=== PATIENT | female | born 1960 | race Caucasian/White ===

== ENCOUNTER → 2020-02-07 15:34 | Outpatient (CLI) | payer OTHER, SELFPAY ==
--- NOTE | ~2020-02-07 | MR_ITS ---
EXAMINATION: MR lumbar spine wo con EXAM DATE: 02/07/2020 16:19 INDICATION: Low back pain. TECHNIQUE: Multi-sequential, multiplanar MR images of the lumbar spine were obtained without contrast . Sagittal T1, T2, T2 fat saturation images. Axial T2 weighted images. There is no prior study for comparison. FINDINGS: There is a rudimentary S1-S2 disc. There is 3 mm anterolisthesis L5 on S1. The conus medull marian terminates at the L1-2 level and has normal signal intensity and morphology. Mild disc disease a t all lumbar levels. No spondylolysis suspected. No suspicious marrow signal abnormalities. Paraspina l soft tissue is unremarkable. The vertebral bodies are otherwise aligned. Level by level evaluation: L1-L2: There is a mild diffuse disc bulge. Facet arthropathy: Mild bilateral. Neural foraminal stenosis: No stenosis. Central canal stenosis: No stenosis. L2-L3: There is a mild diffuse disc bulge. Facet arthropathy: Mild to moderate bilateral. Neural foraminal stenosis: No stenosis. Central canal stenosis: No stenosis. L3-L4: There is a mild to moderate diffuse disc bulge. Facet arthropathy: Moderate . Ligamentum flavum enlargement. Neural foraminal stenosis: Mild to moderate left, mild right. Central canal stenosis: Mild. L4-L5: There is a mild to moderate diffuse disc bulge. Facet arthropathy: Moderate . Ligamentum flavum enlargement. Neural foraminal stenosis: Mild to moderate bilateral. Central canal stenosis: Mild. L5-S1: There is a mild to moderate diffuse disc bulge. Facet arthropathy: Severe left, moderate to severe right. Neural foraminal stenosis: Moderate left, mild to moderate right. Central canal stenosis: Moderate to severe. IMPRESSION: 1. L5-S1 grade 1 anterolisthesis, moderate to severe facet arthropathy and central canal stenosis. 2. Otherwise mild to moderate lumbar spondylosis. Reviewed, dictated and finalized at [facility]. [employer] MANAGEMENT DIRECTOR IMPRESSION: 1. L5-S1 grade 1 anterolisthesis, moderate to severe facet arthropathy and hilario tral canal stenosis. 2. Otherwise mild to moderate lumbar spondylosis.
== END ==
PROVIDERS: Visit Provider Physical Medicine & Rehabilitation
DX: M54.42 Lumbago with sciatica, left side (principal); M54.41 Lumbago with sciatica, right side; M47.817 Spondylosis without myelopathy or radiculopathy, lumbosacral region; M48.07 Spinal stenosis, lumbosacral region
CPT/HCPCS: 72148

== ENCOUNTER 2020-11-22 15:58 | Emergency (ER) | payer OTHER, SELFPAY ==
--- NOTE | ~2020-11-22 | CT_ITS ---
EXAMINATION: CT lumbar spine wo con DATE: 11/22/2020 18:30 INDICATION: Fall. Low back and buttock pain TECHNIQUE: Computed tomography (CT) of the lumbar spine was performed without intravenous contrast. A utomated exposure control and iterative reconstruction technique were employed. Exam dose: 1067.04 m Gy-cm total exam DLP. COMPARISON: 02/07/2020 MRI lumbar spine FINDINGS: No fracture or bone destruction of the lumbar spine. There is a transitional lumbosacral vertebra with sacralization on the right and lumbarization on the left Prominent degenerative change at the apophyseal joints at the level between the last functional lumba r vertebra and the transitional lumbosacral vertebra, with associated grade 1 anterolisthesis at this level. There is mild degenerative spurring of the lumbar spine. No fracture or bone destruction is detected. The sacroiliac joints are intact. Incidental finding of 3.6 x 6 mm nonobstructing right renal calculus.. IMPRESSION: Transitional lumbosacral vertebra Grade 1 anterolisthesis due to degenerative change at the apophyseal joints at the level between last functional lumbar vertebra and the transitional lumbosacral vertebra No fracture of the lumbar spine Right nonobstructing 3.6 x 6 mm kidney stone Reviewed, dictated and finalized at [facility]. Reviewed, dictated and finalized at [facility]. IMPRESSION: Transitional lumbosacral vertebra Grade 1 anterolisthesis due to degenerative change at the apophyseal joints at the level between last functional lumbar vertebra and the transitional lumbosac ral vertebra No fracture of the lumbar spine Right nonobstructing 3.6 x 6 mm kidney stone
[2020-11-22 16:34] VITALS: BP 148/59; PULSE 60; RESP 16; TEMP 36.4; O2SAT 100
[2020-11-22 16:50] VITALS: BP 148/59; PULSE 60; RESP 18; TEMP 36.4; O2SAT 100
[2020-11-22] MEDS: LIDOCAINE 5% PATCH 1 PATCH TRANSDERM (18:53)
--- NOTE | 2020-11-22 20:27 | ED.BACK ---
HPI - Back Pain/Injury General Chief Complaint: Back Pain/Injury Stated Complaint: fall/low back pain Time Seen by Provider: 11/22/20 17:08 Source: patient Mode of arrival: ambulatory Limitations: no limitations History of Present Illness HPI Narrative: 60-year-old female Patient is in good health Late this morning she tripped over her shani tzu and fell backward and landed on her rear end She went ahead and went to work but has had progressively increasing discomfort through the day She does not have any radicular pain, no pain radiating into the buttocks or legs No numbness, no difficulty with bowel or bladder She does not complain of pain anywhere else, she did not strike her head, she has not had any neck pain, and she is not on any blood thinners Also there were no symptoms no dizziness prior to falling Related Data Allergies Allergy/AdvReac Type Severity Reaction Status Date / Time ZOMAX Allergy Unknown Unknown Uncoded 11/22/20 16:49 Review of Systems Review of Systems: All systems reviewed & are unremarkable except as noted in HPI and below Constitutional: Constitutional: Reports no additional constitutional complaints, Denies chills, Denies fever(s), Denies headache(s) and Denies weakness Eyes: Eyes: Reports no additional eye complaints and Denies change in vision ENT: Denies headache(s) and Denies sore throat Cardiovascular: Cardiovascular: Denies chest pain and Denies dyspnea Respiratory: Respiratory: Denies cough and Denies dyspnea Gastrointestinal: Gastrointestinal: Denies abdominal pain, Denies diarrhea and Denies vomiting Genitourinary: Genitourinary: Denies urinary frequency and Denies dysuria Musculoskeletal: Musculoskeletal: Denies deformity, Denies arthralgias, Denies joint swelling and Denies numbness Integumentary/Breasts: Skin/Breast: Denies rash and Denies wounds Neurologic: Denies headache(s), Denies focal weakness and Denies numbness Psychiatric: Psychiatric: Reports no additional psychiatric complaints Endocrine: Endocrine: Reports no additional endocrine complaints Hematologic/Lymphatic: Hematologic/Lymphatic: Reports no additional hematologic/lymphatic complaints Allergic/Immunologic: Allergic/Immunologic: Reports no additional allergic/immunologic complaints Exam Const: General: cooperative, no acute distress and alert Orientation/consciousness: patient oriented x3 (alert) HENMT: Head: normal to inspection, normocephalic, atraumatic, no contusions and no hematomas Ears: external ears normal General nose exam: no epistaxis Eyes: Conjunctivae: conjunctivae normal EOM: EOMs intact bilaterally Neck: Neck: normal visual inspection, supple and no JVD Resp: Effort & Inspection: normal respiratory effort and not labored Auscultation: other (BS =) GI: GI Palp: Yes Soft to palpation and No Tenderness to palpation present (GI) Back/Spine/Pelvis: Other: She has mild to moderate midline tenderness over the lower part of the lumbar spine, no cervical or thoracic tenderness, no paraspinous tenderness Skin: General skin exam: normal color and no rashes or lesions noted Neuro: General: patient oriented x3 (alert) and moves all extremities Speech: normal speech Extrem: General: normal to inspection Other: No rotation or shortening Psych: Affect: normal affect Course Vital Signs Vital signs: Vital Signs Temperature 36.4 C L 11/22/20 16:34 Pulse Rate 60 11/22/20 16:34 Respiratory Rate 16 11/22/20 16:34 Blood Pressure 148/59 H 11/22/20 16:34 Pulse Oximetry 100 11/22/20 16:34 Temperature 36.4 C L 11/22/20 16:50 Pulse Rate 60 11/22/20 16:50 Respiratory Rate 18 11/22/20 16:50 Blood Pressure 148/59 H 11/22/20 16:50 Pulse Oximetry 100 11/22/20 16:50 MDM - Back Pain/Injury Imaging Data Radiologist's impression: ITS Impressions Lumbar Spine CT 11/22/20 19:02 IMPRESSION: Transitional lumbosacral vertebra Grade 1 anterolisthesis
[2020-11-22] MEDS: KETOROLAC 30 MG/ML VIAL (*BKC) IM (20:38)
[2020-11-22 20:59] VITALS: BP 146/62; PULSE 54; RESP 14; O2SAT 99
[2020-11-22 21:41] VITALS: BP 146/62; PULSE 54; RESP 14; O2SAT 99
== END 2020-11-22 21:42 | disposition home or self-care (01) ==
PROVIDERS: Emergency Provider Emergency Medicine; PCP Internal Medicine Endocrinology, Diabetes & Metabolism
DX: S39.012A Strain of muscle, fascia and tendon of lower back, initial encounter (principal); S30.0XXA Contusion of lower back and pelvis, initial encounter; W18.39XA Other fall on same level, initial encounter
CPT/HCPCS: 72131; 96372; 99284; A9270; J1885

== ENCOUNTER 2023-01-20 01:06 | Day surgery (SDC) | payer OTHER, SELFPAY ==
[2023-01-07 13:17] VITALS: BMI 29.2
[2023-01-20 08:57] VITALS: BP 122/47; PULSE 54; RESP 20; TEMP 36.8; O2SAT 99
[2023-01-20] MEDS: LACTATED RINGERS 1,000 ML 150 ML IV CONT (09:07)
--- NOTE | 2023-01-20 09:54 | P.PNAN_ITS ---
Anes - Initial Pre Proc Eval Procedure: Operation Date: 01/20/23 10:30 Proposed Procedures p Screening Colonoscopy - Gilberto Arellano MD Date/Time: 01/20/23 09:54 Surgeon: Gilberto Arellano MD Pre Op Diagnosis: neoplasm screening Patient Data Age: 62 Gender: F Height: 1.63 m Weight: 75.2 kg Last Vital Signs Temp 98.2 F 01/20/23 08:57 Pulse 54 L 01/20/23 08:57 Resp 20 01/20/23 08:57 BP 122/47 L 01/20/23 08:57 Pulse Ox 99 01/20/23 08:57 O2 Del Method Room Air 01/20/23 08:57 Allergies Allergy/AdvReac Type Severity Reaction Status Date / Time No Known Allergies Allergy Verified 01/20/23 08:55 Home Medications Medication Instructions Recorded Confirmed Type alprazolam 0.5 mg tablet 0.5 mg PO BID PRN Anxiety 01/07/23 01/07/23 History ascorbic acid (vitamin C) 500 mg 500 mg PO BID 01/07/23 01/07/23 History tablet (Vitamin C) aspirin 81 mg tablet 81 mg PO DAILY 01/07/23 01/07/23 History baclofen 10 mg tablet 10 mg PO DAILY PRN muscle spasms 01/07/23 01/07/23 History ferrous sulfate 325 mg (65 mg 325 mg PO BID 01/07/23 01/07/23 History iron) tablet (FeroSul) fosinopril 40 mg tablet 40 mg PO DAILY 01/07/23 01/20/23 History hydrochlorothiazide 25 mg tablet 25 mg PO DAILY 01/07/23 01/07/23 History multivit with minerals-iron 18 1 tablet PO DAILY 01/07/23 01/07/23 History mg-folic ac 400 mcg-vit K 25 mcg tablet (Adults Multivitamin) Patient hx anesthesia problems: none Family hx anesthesia problems: none Results Review: All pre-operative results and documents have been reviewed as part of the pre- operative evaluation. [facility] Social History Social History Years smoked: 20 Smoking status: Current every day smoker Tobacco type: cigarettes Substance use type: does not use Living arrangements: with family Spiritual care concerns: No Anes - Eval Final PreProcedure Day of Procedure 01/20/23 09:54 Patient weight: overweight Heart: regular rate and rhythm Lungs: clear to auscultation Airway: Mallampati scale class II Neurological: alert and oriented Last oral intake: >/= 8 hours ASA classification: III Emergent: no Anesthetic plan: proceed Anesthesia type and monitoring: general GIVS and standard monitoring Results Review: All pre-operative results and documents have been reviewed as part of the pre- operative evaluation. Informed Consent: The patient's anesthetic plan and its attendant risks and benefits were discussed with the patient/family/POA. Questions were solicited and answers provided to the satisfaction of the patient/family/POA.
--- NOTE | 2023-01-20 10:15 | PM.HPGS ---
History of Present Illness History of Present Illness Consent: Risks, benefits, and alternatives have been discussed and questions answered. Patient agrees to proceed with procedure. Chief complaint: neoplasm screening Narrative: Flor Garcia is a 62 year old female here for screening colonoscopy, last one more than 10 years ago Review of Systems Constitutional: Constitutional: Denies headache(s) and Denies weakness Eyes: Eyes: Denies blurry vision ENT: Reports Normal hearing present, Denies headache(s) and Denies neck pain Cardiovascular: Cardiovascular: Denies chest pain and Denies dyspnea Respiratory: Respiratory: Denies dyspnea Gastrointestinal: Gastrointestinal: Reports no additional gastrointestinal complaints Genitourinary: Genitourinary: Denies dysuria Musculoskeletal: Musculoskeletal: Denies neck pain Integumentary/Breasts: Skin/Breast: Denies dry skin Neurologic: Reports Normal hearing present, Denies headache(s) and Denies weakness Psychiatric: Psychiatric: Denies anxiety Endocrine: Endocrine: Denies change in body appearance Hematologic/Lymphatic: Hematologic/Lymphatic: Denies easy bleeding Allergic/Immunologic: Allergic/Immunologic: Denies urticaria PMFSH Past Medical History Medical History (Updated 01/20/23 @ 10:15 by Gilberto Arellano MD) Colon cancer screening Social History Social History Years smoked: 20 Smoking status: Current every day smoker Tobacco type: cigarettes Substance use type: does not use Living arrangements: with family Spiritual care concerns: No Meds Home Medications and Allergies Home Medications Medication Instructions Recorded Confirmed Type alprazolam 0.5 mg tablet 0.5 mg PO BID PRN Anxiety 01/07/23 01/07/23 History ascorbic acid (vitamin C) 500 mg 500 mg PO BID 01/07/23 01/07/23 History tablet (Vitamin C) aspirin 81 mg tablet 81 mg PO DAILY 01/07/23 01/07/23 History baclofen 10 mg tablet 10 mg PO DAILY PRN muscle spasms 01/07/23 01/07/23 History ferrous sulfate 325 mg (65 mg 325 mg PO BID 01/07/23 01/07/23 History iron) tablet (FeroSul) fosinopril 40 mg tablet 40 mg PO DAILY 01/07/23 01/20/23 History hydrochlorothiazide 25 mg tablet 25 mg PO DAILY 01/07/23 01/07/23 History multivit with minerals-iron 18 1 tablet PO DAILY 01/07/23 01/07/23 History mg-folic ac 400 mcg-vit K 25 mcg tablet (Adults Multivitamin) Allergies Allergy/AdvReac Type Severity Reaction Status Date / Time No Known Allergies Allergy Verified 01/20/23 08:55 Vital Signs Vital Signs - 24 hr 01/20/23 08:57 Temperature 98.2 F Pulse Rate 54 L Respiratory Rate 20 Blood Pressure 122/47 L Pulse Oximetry 99 Oxygen Delivery Room Air Exam Const: General: comfortable and no acute distress HENMT: Face/Nose/Sinus: Normal nares present Eyes: General: appearance normal, both eyes and all related structures Neck: Neck: no JVD Resp: Auscultation: clear to auscultation bilaterally Cardio: Rate: regular rate Rhythm: regular rhythm GI: Inspection: non-distended GI Palp: Yes Soft to palpation Skin: General skin exam: normal color Neuro: General: gait normal Speech: normal speech Extrem: General: normal to inspection Psych: Mental Status: mental status grossly normal Assessment and Plan Assessment and plan (1) Colon cancer screening: Code(s): Z12.11 - Encounter for screening for malignant neoplasm of colon Status: Acute Assessment and Plan: colonoscopy
[2023-01-20 10:50] VITALS: BP 128/73; PULSE 62; RESP 13; O2SAT 100
[2023-01-20 11:00] VITALS: BP 139/94; PULSE 58; RESP 16; O2SAT 100
[2023-01-20 11:10] VITALS: BP 129/63; PULSE 60; RESP 15; O2SAT 100
== END 2023-01-20 11:15 | disposition home or self-care (01) ==
PROVIDERS: PCP Nurse Practitioner Family; Visit Provider Internal Medicine Gastroenterology
PROC: 0DJD8ZZ Inspection of Lower Intestinal Tract, Via Natural or Artificial Opening Endoscopic (ICD-10-PCS; CPT 45378; principal; 2023-01-20 10:30)
DX: Z12.11 Encounter for screening for malignant neoplasm of colon (principal); K57.30 Diverticulosis of large intestine without perforation or abscess without bleeding; Q27.33 Arteriovenous malformation of digestive system vessel; D64.9 Anemia, unspecified; Z98.84 Bariatric surgery status; F17.210 Nicotine dependence, cigarettes, uncomplicated; Z79.82 Long term (current) use of aspirin
CPT/HCPCS: 45381; 45388; J2001; J2704; J7120

== ENCOUNTER 2024-08-08 16:09 | Inpatient (IN) | payer MEDICARE, SELFPAY ==
[2024-08-08] VITALS (7 sets, daily range): BP systolic 130–166; BP diastolic 48–75; PULSE 62–81; RESP 16–99; TEMP 36.4–36.8; O2SAT 18–100; BMI 25.7
--- NOTE | ~2024-08-08 | CT_ITS ---
CLINICAL INDICATION: Nausea, vomiting and leukocytosis COMPARISON: 09/02/2018. TECHNIQUE: Multiple contiguous axial images of the abdomen and pelvis were performed following the ad ministration of with 100 mL Omnipaque-350 intravenous contrast The dose-length product (DLP) was 322.05 mGy-cm. Automated exposure control and iterative reconstruction technique were employed. FINDINGS/OBSERVATIONS: Visualized lower thorax: The bilateral lung bases are clear. The heart is of normal size, without pericardial effusion. Liver: The liver demonstrates homogeneous enhancement and is not enlarged. Gallbladder and biliary system: The gallbladder is surgically absent. Pancreas: The pancreas enhances homogeneously without ductal dilatation. Spleen: The spleen enhances homogeneously and is not enlarged. Kidneys: The bilateral kidneys enhance symmetrically without hydronephrosis or renal calculi. Adrenal glands: Unremarkable. Gastrointestinal tract: Multiple loops of minimally dilated fluid-filled bowel (both small and large) are identified. 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 Prominent hiatal hernia which includes a portion of the staple line. Appendix: The appendix is not definitively visualized. However, no pericecal inflammatory change is identified suggest the presence of acute appendicitis. Vasculature: Densely calcified atherosclerotic disease. Lymph nodes: No pathologically enlarged or morphologically suspicious lymph nodes within the retroperitoneum or at the root of the mesentery. Pelvic structures: The bladder is only minimally distended, and otherwise unremarkable. The uterus is either atrophic or surgically absent. Body wall and musculoskeletal: Small fat-containing umbilical hernia. No significant degenerative disease within the lower thoracic or lumbosacral spine. IMPRESSION: Multiple loops of minimally dilated fluid-filled small and large bowel, consistent with patient's his tory. No additional acute or subacute pathology identified. Reviewed, dictated and finalized at location A. IMPRESSION: Multiple loops of minimally dilated fluid-filled small and large bowel, consist ent with patient's history. No additional acute or subacute pathology identified.
--- NOTE | ~2024-08-08 | XR_ITS ---
XR chest 2V Ordering provider: Snehal Noel III DO History: 64 years Female with . weakness LOSS OF VOICE . Comparison: September 19, 2008 FINDINGS: MEDIASTINUM: The cardiac silhouette is not enlarged. Left tripolar pacemaker. LUNGS: No effusions or pneumothorax. Prominent markings in the left lung base medially. OTHER: No free air under the diaphragm. Degenerative the spine. Multiple vertebrae loss of height in the midthoracic area most likely chronic compressions. IMPRESSION: No acute cardiopulmonary pathology. Reviewed, dictated and finalized at location A.
--- OUTSIDE RECORDS SUMMARY | 2024-08-08 16:12 | XMS_ITS | Data Portability ---
Author Organization [place] [facility], Main Office Address [address] [place] [address] Care Team Providers Care [employer] Support Specialist Name Role Phone RAQUEL BLOOD Primary Care Provider [phone] Assessment Encounter Date Assessment Date Assessment LastModified by Organization Details LastModified Time 05/25/2024 05/25/2024 Assessment: Nicotine use 1/2 ppd [id number] (quit 2 years in between) = 19 pack years Mild OSAHS, AHI = 6 (2007) Mod OSAHS, AHI = 20 (2022) Iron deficiency anemia Sinus bradycardia Plan: The following were reviewed and explained to the patient: Anna split sleep study 06/02/07 AHI = 6, PLMI = 22 [facility] diagnostic sleep study 04/15/22 AHI = 20, supine AHI = 60 [facility] titration sleep study 06/17/22 Travis small Aminta full face mask @ 16 cmH2O ESR 04/09/22 71 mm/hr BUN 04/09/22 20 mg% B12 04/09/22 >1000 pg/mL Ferritin 04/09/22 9 ng/mL Ferritin 09/21/22 29 ng/mL Ferritin 12/24/22 37 ng/mL Ferritin 03/18/23 64 ng/mL Ferritin 06/14/23 67 ng/mL Ferritin 10/27/23 79 ng/mL Ferritin 02/24/24 94 ng/mL Ferritin 05/10/24 72 ng/mL Hgb 04/09/22 11.4 gm% Hgb 09/21/22 11.2 gm% Hgb 12/24/22 11.9 mg% Hgb 03/18/23 12.3 gm% Hgb 06/14/23 11.7 gm% Hgb 10/27/23 10.8 gm% Hgb 02/24/24 12.0 gm% Hgb 05/10/24 12.0 gm% Hct 04/09/22 35.5% Hct 09/21/22 34.1% Hct 12/24/22 34.8% Hct 03/18/23 37.0% Hct 06/14/23 35.6% Hct 10/27/23 33.0% Hct 02/24/24 35.7% Hct 05/10/24 35.9% Elevation in periodic limb movement index may be contributed by fluoxetine. Non-pharmacologic therapy options for periodic limb movement disorder include avoidance of aggravating drugs and substances, mental alerting activities, short daily hemodialysis for patients in renal failure, exercise, leg massage, stretching calf muscles, use of a weighted blanket and applied heat. Patient will cut down on nicotine use and caffeine intake. Patient has discontinued B12 supplements. Patient will continue FeSO4 325 mg + Vit C 500 mg twice daily to keep the ferritin > 75 ng/ml. We will hold off on dopaminergic therapy for now. PAP compliance downloaded and interpreted x 20 minutes. Data reviewed and explained to the patient. Average apnea/hypopnea index (AHI) is 0.9. Patient used PAP > 4 hours 92% of the time. PAP is set at 16 cmH2O. PAP will remain at 16 cmH2O. Keep ramp start at 8 cmH2O. Keep ramp duration at 20 minutes. Keep humidifier level at automatic mode. Keep tube temperature at 80 F. Keep EPR off. Oxygen supplementation: none Patient is benefiting from PAP therapy. Encouraged patient to maintain PAP use more than 70% of the time. Statement of PAP use and benefits will be sent to the home care store. Educated the patient on problems and solutions associated with positive airway pressure (PAP) use. Difficulty tolerating pressure, mask leaks, intolerance of interface, nasal congestion, claustrophobic response, dry mouth, and unintentional mask removal during sleep were covered. Dry mouth is a normal occurrence for people who just start out on PAP therapy because they are not used to air blowing in to the throat to hold open. Dry mouth is exacerbated for people who wear nasal PAP mask and whose jaw drops open during sleep. Not only does this create a much less efficient therapy because of leakage, it also causes dry mouth. There are a couple solutions to help prevent this type of problem. A simple solution would be to wear a chinstrap which essentially holds the jaw in place. A second solution would be a switch to a full face mask which covers both the nose and mouth. Although this is another easy solution, using a full face mask for some could seem claustrophobic or confining. There is no silver bullet solution as no single mask is right for everybody. Sometimes it takes a bit of experimentation to find a PAP mask which best meets the patient's needs as well as fits comfortably. Another tactic is to use a humidifier on your PAP machine. Most new PAP machines have integrated humidifiers. Humidification is sahni when dealing with symptoms of dry mouth because the humidifier can supply both warm and room temperate air. Even a small amount of humidity in the airflow will help nasal passages to stay hydrated. If a person is using both a full face mask and a PAP machine with a heated humidifier and is still experiencing dry mouth, an ill-fitted PAP mask might be causing the problem. Leakage can be caused by a mask that is to large or small, the wrong style mask, the cushion is degraded or simply because the mask's straps aren't adjusted correctly. If leakage occurs, dry air from the room can leak in while humidification escapes. The result is reduced humidification within the circuit and resulting in dry throat and mouth. Finally, beyond factors involving the PAP machine and mask, dry mouth can also be caused or worsened by dehydration. The general recommendation to during eight 8 oz. glasses of water a day might be too little for many people. When people drink large amounts of coffee or other caffeine beverages, or sweat a lot during the day, making sure to rehydrate is an important part of PAP therapy. Provided the patient with a list of local home care stores where positive airway pressure (PAP) units, accoutrement, and services are available. Home care store selection is based on patient's insurance carrier. Patient will setup an appointment with [facility] for supplies and pressure adjustments. A major predictor of success with use of PAP is follow-up with both the respiratory supplier and the treating physician. The download results can show the treating physician information about adherence to treatment, residual AHI while on treatment and presence of large mask leakage. This information is especially helpful if the patient has residual sleepiness despite treatment. General information on sleep disordered breathing, evaluation of sleep disordered breathing, treatment with PAP therapy, and living with PAP therapy were covered. We discussed with the patient the impact of weight on: Sleep disordered breathing Hypertension Prediabetes OA We discussed with the patient the benefit of PAP therapy on: Sleep disordered breathing Anxiety/Depression Hypertension Prediabetes PAP titration sleep study ordered. Educated the patient on sleep hygiene measures. Relaxing rituals to rest easy, understanding foods with positive and negative impact on sleep, creating a peaceful sleep environment, timing of exercise, using herbal sleep aids, and practicing sleep-friendly meditation were covered. To determine how much sleep is needed, the patient will assess where she falls on the spectrum, examine what lifestyle factors such as work schedules and stress are affecting the quality and quantity of sleep. In general, adults need 7-9 hours of sleep. Educated the patient regarding foods that promote sleep. These include but are not limited to cherries, bananas, toast, oatmeal, and warm milk. Educated the patient regarding foods and drinks to avoid before bedtime. These include but are not limited to aged cheese, chocolate, spicy foods, tomato-based sauces, soy, ginseng tea and processed meat. Advocated influenza vaccination annually and pneumonia vaccination KEANU. Advocated weight loss through diet and exercise. Patient's ideal body weight according to height and gender is up to 130 lbs. Encouraged patient to adjust caloric intake to maintain/achieve ideal body weight, emphasizing on fruits, vegetables, whole grains, and fat-free or low-fat products. These include lean meats, poultry, fish, beans, eggs, and nuts and foods that are low in saturated fats, trans-fats, cholesterol, salt (sodium), and glycemic index. Stressed the importance of regular exercise up to the patient's capacity limits. In this case, we recommend 20 min daily walking, 2 days a week of resistance training. Patient to monitor BP daily and bring records to PCP for further management. Follow-up: 3 months, August 2024 [email or web address] Not available 05/25/2024 10:38:04 Plan of Treatment Reminders Order Date Submit Date Provider Last Modified By Organization Details Last Modified Time Details Appointments Follow Up 30 2024 09:15A Rome Alcantara MD Not available Not available Not available Lab ferritin , serum or plasma 2024 04/21/2 025 [facility] (Lab), [address] [place], [address], 08/07/2024 04:23:24 hemoglob in + hematocr it, blood 2024 025 [facility] (Lab), [address] [place], [address], 08/07/2024 04:23:24 Referral otolaryn gologist referral - Please call patient to schedule an appointm ent. Thank you. 2024 025 [facility] Griselda Souza [facility], [address], [place], [address], 06/22/2024 16:15:25 Procedures adán maneuver (PROC) 2024 025 [facility], [address] [place], [address], 07/13/2024 11:05:19 Surgeries None recorded . Imaging None recorded . Medication Orders Medrol (Jhoan) 4 mg tablets in a dose pack 2024 025 [facility]93202, [address], [place], [id number], 07/13/2024 10:56:09 meclizin e 25 mg tablet 2024 025 [facility] #08101, [address], [place], [id number], 06/22/2024 10:36:50 trazodon e 50 mg tablet 2024 025 [facility] #64186, [address], [place], [id number], 06/22/2024 10:36:55 escitalo pram 20 mg tablet 2024 025 [facility] #43915, [address], [place], [id number], 06/22/2024 10:36:54 Trulicit y 3 mg/0.5 mL subcutan eous pen injector 2024 025 [id number] [facility] #85151, [address], [place], [id number], 07/24/2024 13:40:13 fosinopr il 40 mg tablet 2024 025 [id number] 8 [facility] #65233, [address], [place], [id number], 07/24/2024 13:40:14 hydrochl orothiaz caron 25 mg tablet 2024 025 [id number] 8 [facility] #16421, [address], [place], [id number], 07/24/2024 13:40:12 ferrous sulfate 325 mg (65 mg iron) tablet 2024 025 ANDREA [facility] #90539, [address], [place], [id number], 06/22/2024 10:36:49 Diflucan 150 mg tablet 2024 025 akachigian [facility] #19018, [address], [place], [id number], 07/10/2024 11:11:27 ferrous sulfate 325 mg (65 mg iron) tablet 2024 025 [facility]-[id number] 0 [facility]36123, [address], [place], [id number], 05/25/2024 18:24:02 Vitamin C 500 mg tablet 2024 025 [id number] 8 [facility] #89203, [address], [place], [id number], 07/24/2024 13:40:12 Patient TargetsNo targets recorded. Patient Instructions Encounter Date Encounter Id Patient Instructions Last Modified By Organization Details Last Modified Time 06/22/2024 [id number] Follow up in 3 months Prescriptions sent to pharmacy Tests: Referral: Griselda SouzaWyrng-G[facility]-zfhbjna Recommend: Tetanus vaccine [email or web address] Not available 06/22/2024 10:35:26 07/13/2024 [id number] advised to continue use of meclizine as needed. She will be sent to PT for [place]-Hallpike testing and Adán maneuvers if indicated. She will have an audiogram and tympanogram completed. Advised use of the Valsalva maneuver in combination with her Medrol Dosepak to aid in reopening her Eustachian tube. Closely monitor blood sugars while taking the Medrol Dosepak. 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 Thank you. Referring Physician: Raquel Blood, Internal Medicine, Encounter Date: 06/22/2024 Results Created Date Observation Date Name Description Value Unit Range Abnormal Flag Note LastModifiedBy Organization Detail LastModifiedTime 02/17/20 24 02/17/2024 DEXA, axial skele ton No observ ation record ed. [facility] [address] [place], [address], 02/17/2024 16:51:05 Result Notes None recorded. Problems Name Problem SNOMED Code Status Onset Date Resolution Date Notes Provider Name and Address Organization Details Recorded Time Celluliti s and abscess of abdominal wall 862228577 Completed Not Available [facility] 3 07:00:51 Partial thickness rotator cuff tear 948995198 Active Not Available [facility] 4 04:10:45 Mixed anxiety and depressiv e disorder 024940870 Active 2021 Raquel Blood APRN [address] [facility], [facility] [address], [place], [address] , [place] [facility] 4 14:05:59 Osteoarth ritis 569699567 Active 2021 Raquel Blood APRN [address], [place], [address] , [employer] [facility] [employer] [facility] 4 14:06:06 Acute abscess of skin and/or subcutane ous tissue 336052393 Completed Not Available [facility] 3 07:00:52 Essential hypertens ion 84188804 Active Raquel Blood APRN [address], [address], [place], [address] , [employer] 4 14:05:51 History of bypass of stomach 991221476 Active 2021 in 2018 Raquel Blood APRN [address], [address], [place], [address] , [employer] 4 10:41:57 Diabetes mellitus 13144405 Active Raquel Blood APRN [address], [address], [place], [address] , [employer] 4 14:05:48 Obstructi ve sleep apnea syndrome 97128889 Active Raquel Blood APRN [address], [address], [place], [address] , [employer] [facility] 4 14:06:03 Iron deficienc y anemia 03424522 Active 2022 Raquel Blood APRN [address], [address], [place], [address] , [employer] 4 14:05:55 Vertigo 223944124 Active 2024 Raquel Blood APRN [address], [place], [address] , [employer] [facility] [employer] [facility] 5 16:08:54 Onychomyc osis of toenails 423328919 Active 2024 VENU Rivers null, [facility] [employer] [facility] 10:34:53 Benign paroxysma l positiona l vertigo 619702512 Active 2024 Griselda Frankel RN null, [facility] [employer] [facility] 10:52:39 Sensorine ural hearing loss 48660016 Active 2024 Griselda Frankel RN null, [facility] [employer] [facility] 10:53:26 Benign paroxysma l positiona l vertigo 343623849 Active 2024 TIAGO Andrew [address], [place], [address] , [employer] [facility] [employer] [facility] 10:55:40 Dysfuncti on of right eustachia n tube [id number] 78901 Active 2024 TIAGO Andrew [address], [place], [address] , [facility] [employer] [facility] 10:55:51 Notes:Medical History: Anxie ty/Depression Pityriasis capitis Vertigo Obesity with moderate OSAHS, AHI = 20, 04/15/22, on CPAP c/o IVRC Hypertension Sinus bradycardia Prediabetes with microalbuminuria Iron deficiency anemia PLMD OA Procedure History: C-sections 1982, 1989, 1995 KAYLYNN 1997 Cholecystectomy 1999 Umbilical herniorrhaphy 2001 Gastric bypass 2018 Pacemaker placement 2022 Colonoscopies 2023 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 Procedures Surgical History Date Name Laterality Status Provider Name and Address Organization Details Recorded Time 025 Nail Debridement completed Avelino Pina DPM [address], [address], [place], [address], [employer] [facility] 06/19/2024 08:45:08 024 Medicare Wellness CPT Code, subsequent completed Raquel Blood APRN [address], [place], [address], [facility] [employer] [facility] 02/16/2024 08:25:29 024 repair of cardiac pacemaker completed HIRAM Hopkins Dayron [facility] 08/19/2023 10:31:34 023 Pacemaker completed [facility]offett [facility] 04/15/2023 10:37:25 cholecystectomy completed Not Available Replaced by [facility] 06/03/2022 06:56:02 bypass gastroenterostomy completed Not Available Replaced by [facility] 06/03/2022 06:56:02 section completed Not Available Replaced by [facility] 06/03/2022 06:56:02 section completed Not Available Replaced by [facility] 06/03/2022 06:56:02 Hernia Surgery completed Not Available Replaced by [facility] 06/03/2022 06:56:02 section completed Not Available Replaced by [facility] 06/03/2022 06:56:02 Hysterectomy, Partial completed Not Available Replaced by [facility] 06/03/2022 06:56:02 Imaging Results Imaging Date Name Status LastModified by Organiz ation Details LastModified Time 02/17/2024 DEXA, axial skeleton completed [facility] [address] [place], [address], 02/17/2024 16:51:05 Procedure Notes None recorded. Medical Equipment None Reported. Allergies No known drug allergies Medications Name Sig Start Date Stop Date Status Note LastModified by Organization Details LastModified Time fluoxetin e 40 mg capsule TAKE 1 CAPSULE BY MOUTH EVERY DAY 04/20 completed Not Available Not Available Not Available atorvasta tin 20 mg tablet active Not Available Not Available Not Available clindamyc in HCl 300 mg capsule Take 1 capsule every 6 hours by oral route. 2014 active Not Available Not Available Not Avai lable Vitamin C 500 mg tablet Take 1 tablet twice a day by oral route. [address] Alcantara Not Available Not Available Not Avai lable trazodone 50 mg tablet Take 1 tablet every day by oral route as directed . 2024 active Not Available Not Available Not Avai lable azithromy yanique 250 mg tablet TAKE 2 TABLETS (500 MG) BY ORAL ROUTE ONCE DAILY FOR 1 DAY THEN 1 TABLET (250 MG) BY ORAL ROUTE ONCE DAILY FOR 4 DAYS 05/25 completed Not Available Not Available Not Available ibuprofen 800 mg tablet 02/09 completed Not Available Not Available Not Available fluconazo le 150 mg tablet Take 1 tablet every week by oral route. active Not Available Not Available No t Available ondansetr on HCl 8 mg tablet TAKE ONE Tablet BY MOUTH EVERY 8 HOURS NEEDED FOR NAUSEA 02/25 completed Not Available Not Available Not Available meloxicam 15 mg tablet TK 1 T PO QD 10/08 completed Not Available Not Available Not Available Medrol (Jhoan) 4 mg tablets in a dose pack Take 1 dose pk every day by oral route as directed . 2024 active Not Available Not Available Not Avai lable hydrocodo ne 10 mg-acetam inophen 325 mg tablet TK 1 T PO Q 6 H PRN P 02/25 completed Not Available Not Available Not Available aspirin 81 mg tablet,de layed release Take 1 tablet every day by oral route. active Not Available Not Available No t Available tramadol 50 mg tablet 02/03 completed Not Available Not Available Not Available cyclopent olate 1 % eye drops 10/13 completed Not Available Not Available Not Available meloxicam 7.5 mg tablet Take 1 tablet every day by oral route as directed . active Not Available Not Available No t Available oxycodone -acetamin ophen 5 mg-325 mg tablet 02/03 completed Not Available Not Available Not Available alprazola m 0.5 mg tablet 02/09 completed Not Available Not Available Not Available alprazola m 0.25 mg tablet TK 1 T PO TID PRN 02/25 completed Not Available Not Available Not Available potassium chloride ER 20 mEq tablet,ex tended release(p art/cryst ) TAKE 1 TABLET BY MOUTH ONCE DAILY active Not Available Not Available No t Available prednisol one acetate 1 % eye drops,matt pension 10/13 completed Not Available Not Available Not Available meclizine 25 mg tablet Take 1 tablet 3 times a day by oral route as needed, for vertigo. 2024 active Not Available Not Available Not Avai lable baclofen 10 mg tablet 1 tablet by mouth daily active Hao 15 Not Available Not Available No t Available benzonata te 100 mg capsule Take 1 capsule 3 times a day by oral route as needed. 05/06 completed Not Available Not Available Not Available hydrocodo ne 7.5 mg-acetam inophen 325 mg tablet TK 1 T PO Q 6 H PRN P 02/25 completed Not Available Not Available Not Available cephalexi n 500 mg capsule 02/09 completed Not Available Not Available Not Available ferrous sulfate 325 mg (65 mg iron) tablet Take 1 tablet twice a day by oral route as directed . 2024 active Not Available Not Available Not Avai lable metformin 1,000 mg tablet TK 1 T PO BID 02/25 completed Not Available Not Available Not Available fosinopri l 40 mg tablet TAKE 1 TABLET BY MOUTH EVERY DAY 2024 active Hao 15 Not Available Not Available Not Avai lable triamcino lone acetonide 0.1 % topical ointment 05/06 completed Not Available Not Available Not Available nystatin 100,000 unit/gram topical cream APPLY TOPICALL Y TO THE AFFECTED AREA TWICE DAILY 10/08 completed Not Available Not Available Not Available cephalexi n 500 mg tablet 07/22 completed Not Available Not Available Not Available hydrochlo rothiazid e 25 mg tablet TAKE 1 TABLET BY MOUTH EVERY DAY 2024 active Hao 15 prescrib es Not Available Not Available Not Available Baby Aspirin 81 mg chewable tablet Chew 1 tablet every day by oral route. 02/25 completed Not Available Not Available Not Available Cheratuss in AC 10 mg-100 mg/5 mL oral liquid active Not Available Not Available Not Available clobetaso l 0.05 % scalp solution 10/08 completed Not Available Not Available Not Available lisinopri l 40 mg tablet Take 1 tablet every day by oral route. 2014 active Not Available Not Available Not Avai lable cefdinir 300 mg capsule active Not Available Not Available Not Available neomycin 3.5 mg-polymy carmen 10,000 unit-hydr ocort 10 mg/mL eye drop,susp INSTILL 1 DROP INTO AFFECTED EYE(S) BY OPHTHALM IC ROUTE EVERY 4 HOURS 05/06 completed Not Available Not Available Not Available neomycin- polymyxin -hydrocor t 3.5 mg-10,000 unit/mL-1 % ear drops,matt p INSTILL 3 DROPS IN BOTH EARS 4 TIMES D 02/25 completed Not Available Not Available Not Available Bactrim DS 800 mg-160 mg tablet Take 1 tablet twice a day by oral route for 7 days. 01/07 completed Not Available Not Available Not Available Hctz/Rese rpine/Hyd ralazine 25 mg-0.1 mg-15 mg tablet Take by oral route. 2014 active Not Available Not Available Not Avai lable escitalop noah 10 mg tablet Take 1 tablet every day by oral route as directed . 05/25 completed Not Available Not Available Not Available escitalop noah 20 mg tablet Take 1 tablet every day by oral route as directed . 2024 active Not Available Not Available Not Avai lable cyclobenz aprine 5 mg tablet TK 1 T PO TID 02/25 completed Not Available Not Available Not Available rosuvasta tin 20 mg tablet active Not Available Not Available Not Available nitrofura ntoin monohydra te/macroc rystals 100 mg capsule Take 1 capsule every 12 hours by oral route. 02/03 completed Not Available Not Available Not Available BD Ultra-Fin e Mini Pen Needle 31 gauge x 3/16 USE TWICE A DAY 02/25 completed Not Available Not Available Not Available Pen Needle 31 gauge x 1/4 02/25 completed Not Available Not Available Not Available aspirin 04/01 completed Not Available Not Available Not Available Novolog U-100 Insulin aspart 5 units TID 02/25 completed Not Available Not Available Not Available Levemir U-100 Insulin 100 unit/mL subcutane ous solution Inject 53 units every day by subcutan eous route as directed for 90 days. 02/25 completed Not Available Not Available Not Available BD Ultra-Fin e Short Pen Needle 31 gauge x 5/16 USE WITH INSULIN ONCE DAILY 02/25 completed Not Available Not Available Not Available Levemir U-100 Insulin 2014 active Not Available Not Available Not Avai lable Lantus Solostar U-100 Insulin 100 unit/mL (3 mL) subcutane ous pen ADM 60 UNITS SC QD 02/25 completed Not Available Not Available Not Available Bystolic 5 mg tablet TK 1 T PO D 02/25 completed Not Available Not Available Not Available Suprep Bowel Prep Kit 17.5 gram-3.13 gram-1.6 gram oral solution USE DIRECTED BY DOCTOR active Not Available Not Available No t Available Invokana 300 mg tablet active Not Available Not Available Not Available Levemir FlexTouch U-100 Insulin 100 unit/mL (3 mL) subcutane ous pen USE DIRECTED TO INJECT 60 UNITS EVERY DAY BY SUBCUTAN EOUS ROUTE 02/25 completed Not Available Not Available Not Available Trulicity 1.5 mg/0.5 mL subcutane ous pen injector 02/03 completed Not Available Not Available Not Available Trulicity 0.75 mg/0.5 mL subcutane ous pen injector Inject 0.75 mg every week by subcutan eous route. 11/26 completed Not Available Not Available Not Available Afluria Quad [id number] (PF) 60 mcg (15 mcg x 4)/0.5 mL IM syringe ADM 0.5ML IM UTD 02/25 completed Not Available Not Available Not Available Trulicity 3 mg/0.5 mL subcutane ous pen injector Inject 3 mg every week by subcutan eous route. 2024 active Hao 15 Not Available Not Available Not Avai lable Vitals Date Recorded Body height Body mass index (BMI) Body weight Oxygen saturation Oxygen saturation in Arterial blood by Pulse oximetry Body temperature Heart rate Provider Name and Address Organization Details Last Updated DateTime 4 162.56 cm 27.5 kg/m2 89063.7 8 g 98 % 98 % 98.2 [degF] 65 /min VENU Rivers [facility] 4 11:50:41 Date Recorded Body height Body mass index (BMI) Body weight Body temperature Heart rate Oxygen saturation Oxygen saturation in Arterial blood by Pulse oximetry Systolic blood pressure Diastolic blood pressure Provider Name and Address Organization Details Last Updated DateTime 5 162.56 cm 27.9 kg/m2 79348.4 g 98 [degF] 95 /min 98 % 98 % 124 mm[Hg] 62 mm[Hg] Patsy Rice MA [facility] 5 10:20:23 Date Recorded Heart rate Respiratory rate Provider N elizabeth and Address Organization Details Last Updated DateTime 05/25/2024 95 /min 15 /min Matthew Alcantara MD [address], [facility] [address], [place], [address], [facility] 05/25/2024 10:44:02 Date Recorded Body height Body mass index (BMI) Body weight Oxygen saturation Oxygen saturation in Arterial blood by Pulse oximetry Body temperature Heart rate Provider Name and Address Organization Details Last Updated DateTime 162.56 cm 27.8 kg/m2 47333.9 6 g 98 % 98 % 98.4 [degF] 82 /min VENU Rivers [facility] 10:17:28 Date Recorded Body height Body mass index (BMI) Body weight Body temperature Heart rate Oxygen saturation Oxygen saturation in Arterial blood by Pulse oximetry Systolic blood pressure Diastolic blood pressure Provider Name and Address Organization Details Last Updated DateTime 162.56 cm 28.2 kg/m2 07022.1 5 g 96.8 [degF] 65 /min 97 % 97 % 126 mm[Hg] 84 mm[Hg] Germania Moffett MA [facility] 10:22:55 Date Recorded Body height Body mass index (BMI) Body weight Body temperature Provider Name and Address Organization Details Last Updated DateTime 07/13/2024 162.56 cm 27.8 kg/m2 93265.96 g 97.7 [degF] Griselda Frankel RN [facility] 07/13/2024 10:37:20 Social History Question Answer Notes LastModified by Organization Details LastModified Time Tobacco Smoking Status Former Smoker Aida vale, [facility] 05/12/2023 13:59:52 What Is Your Level Of Alcohol Consumption? None Information not available 02/10/2024 What Is Your Level Of Caffeine Consumption? Occasional [id number] Information not available 06/03/2022 In The 14 Days Before Symptom Onset, Have You Had Close Contact With A Laboratory-conf joslyn COVID-19 While That Case Was Ill? No Information not available 05/12/2023 In The 14 Days Before Symptom Onset, Have You Had Close Contact With A Person Who Is Under Investigation For COVID-19 While That Person Was Ill? No Information not available 05/12/2023 Are You Currently Employed? No Information not available 11/25/2023 What Type Of Diet Are You Following? REGULAR [id number] Information not available 06/03/2022 Do You Have An Electrostatic Air Filter? No Information not available 05/12/2023 What Is Your Occupation? Retired Information not available 11/25/2023 Have You Been Exposed To Chemicals Or Toxins? No Not That Aware Of Information not available 05/25/2024 Have There Been Any Changes To Your Family Or Social Situation? No Information not available 02/10/2024 When Did You Quit Smoking? 1-5yearssincelastc igarette Information not available 02/10/2024 Do You Have A Humidifier? No Information not available 05/12/2023 Do You Use Insect Repellent Routinely? No Information not available 02/10/2024 Where Do You Live? SingleLevelHouse Information not available 05/12/2023 Are You Following A Low Salt Diet? No Information not available 05/12/2023 Do You Have Moisture Problems In Your Home? No Information not available 05/12/2023 What Was The Date Of Your Most Recent Tobacco Screening? 06/15/2024 [email or web address] Information not available 06/15/2024 How Many Children Do You Have? 2 Information not available 11/25/2023 Do You Have Any Pets? Yes Information not available 05/12/2023 What Is Your Relationship Status? Information not available 11/25/2023 Do You Use Your Seat Belt Or Car Seat Routinely? Yes Information not available 05/12/2023 Do You Have Smoke And Carbon Monoxide Detectors In Your Home? Yes Information not available 05/12/2023 At What Age Did You Start Smoking Tobacco? 18 Information not available 05/12/2023 Are You Passively Exposed To Smoke? Yes Information not available 05/12/2023 Are There Any Smokers In Your House? Yes Information not available 02/10/2024 How Much Tobacco Do You Smoke? 0.5 PPD Information not available 02/10/2024 Do You Feel Stressed (tense, Restless, Nervous, Or Anxious, Or Unable To Sleep At Night)? [email or web address] Information not available 08/19/2023 Do You Use Any Illicit Or Recreational Drugs? No Information not available 05/12/2023 Do You Use Sunscreen Routinely? Yes Information not available 05/12/2023 Has Tobacco Cessation Counseling Been Provided? No Information not available 05/12/2023 How Many Years Have You Smoked Tobacco? 20 Information not available 05/12/2023 Have You Recently Traveled Abroad? No Information not available 05/12/2023 Do You Have Any Dietary Restrictions? Yes Diabetic Information not available 05/12/2023 Do You Or Have You Ever Used Any Other Forms Of Tobacco Or Nicotine? No Information not available 05/12/2023 Sex: Unknown Functional Status Question Answer Note LastModified by Organizat ion Details LastModified Time What is your exercise level? Moderate [id number] Information not available 06/03/2022 Mental Status None recorded. Family History Relationship Description Onset Age of this Age Resolved Age Notes LastModified by Organization Details LastModified Time Father Hypertensive disorder [id number] Not available 06/03/2022 06:56:03 Father Family history of malignant neoplasm [email or web address] Not available 07/04 10:29:55 Mother Hypertensive disorder [id number] Not available 06/03/2022 06:56:03 Mother Diabetes mellitus [id number] Not available 06/03/2022 06:56:03 Brother Obstructive sleep apnea syndrome [email or web address] Not available 07/04 10:29:55 Sister Obstructive sleep apnea syndrome [email or web address] Not available 07/04 10:29:55 Son Obstructive sleep apnea syndrome Not available 07/04 10:29:55 Notes:NO ENT Medical History Condition Response OTHER # 1 Y SLEEP DISORDER Y HYPERTENSION Y ANXIETY DISORDER Y Gynecological History Statement/Question Response Date of Last Mammogram Date of LMP STIs/STDs N Date of Last Pap Current Control Method Hysterectom y Breast Problems no How many live births 3 Date of Last Colonoscopy Most Recent Bone Density Sexually Active? N Menses Monthly N Discharge no Obstetrics History GPAL:G 3 P 3 0 0 3 Type Value Multiple Births 0 Full Term 3 Induced 0 Spontaneous 0 Premature 0 Living 3 Ectopics 0 Total 3 Immunizations Vaccine Type Date Status Note Provider Nam e and Address Organization Details Recorded Time COVID-19, mRNA, LNP-S, PF, 30 mcg/0.3 mL dose 1 completed Raquel Blood APRN [address], [address], [place], [address], [facility] 02/04/2024 14:01:39 COVID-19, mRNA, LNP-S, PF, 30 mcg/0.3 mL dose 1 completed Raquel Blood APRN [address], [address], [place], [address], [employer] [facility] 02/04/2024 14:01:39 COVID-19, mRNA, LNP-S, PF, 50 mcg/0.5 mL 3 completed Raquel Blood APRN [address], [address], [place], [address], [facility] 02/04/2024 14:01:39 Pneumococcal conjugate PCV 13 3 completed Raquel Blood APRN [address], [address], [place], [address], [facility] 02/04/2024 14:01:39 Influenza, split virus, quadrivalent, PF 3 completed Raquel Blood APRN [address], [address], [place], [address], [facility] 02/04/2024 14:01:39 Influenza, split virus, quadrivalent, PF 8 completed Raquel Blood APRN [address], [address], [place], [address], [facility] [employer] [facility] 02/04/2024 14:01:39 zoster recombinant 4 completed Raquel Blood APRN [address], [address], [place], [address], [facility] [employer] [facility] 02/10/2024 10:38:29 zoster recombinant 4 completed Raquel Blood APRN [address], [address], [place], [address], [facility] [employer] [facility] 02/10/2024 10:38:29 Pneumococcal conjugate PCV20, polysaccharide [id number] conjugate, adjuvant, PF 4 completed Raquel Blood APRN [address], [address], [place], [address], [facility] [employer] [facility] 02/10/2024 10:38:29 COVID-19, mRNA, LNP-S, PF, yen-sucrose, 30 mcg/0.3 mL 4 completed Raquel Blood APRN [address], [address], [place], [address], [facility] [employer] [facility] 02/10/2024 10:38:29 Influenza, high-dose, trivalent, PF 4 completed Raquel Blood APRN [address], [facility] [address], [place], [address], [facility] [employer] [facility] [employer] 02/10/2024 10:38:29 Influenza, split virus, quadrivalent, PF 2 completed Not Available [facility] 04/17/2023 04:10:45 Past Encounters Encounter ID Performer Location Encounter Start Date Encounter Closed Date Diagnosis/Indication Diagnosis SNOMED-CT Code Diagnosis ICD10 Code Diagnosis Note [id number] TIAGO Velázquez [facility] Primary Care [address] [place] [address] 10/30/2021 00:00:00 10/30/2021 12:12:05 [id number] Kelley Morin MD [facility] Primary Care [address] [address] 01/30/2022 00:00:00 01/30/2022 15:52:53 [id number] Kelley Morin MD [facility] Primary Care [address] [address] 03/12/2022 00:00:00 03/12/2022 19:06:33 [id number] Matthew Alcantara MD [address] [address] 04/09/2022 00:00:00 04/09/2022 11:55:00 [id number] Matthew Alcantara MD [address] [address] 05/06/2022 00:00:00 05/06/2022 11:16:34 [id number] TIAGO Velázquez [facility] Primary Care [address] [address] 06/11/2022 09:43:25 06/11/2022 10:44:31 Obstructive sleep apnea syndrome 85004243 G47.33 Chronic, not well controlled following weight loss.Pt encouraged to keep scheduled appt next week for updated titration study.Prio r to weight loss, pt was using cpap nightly and reports she benefited from use. Body mass index 30+ - obesity 025336379 Z68.32 Not improved despite report of dieting/li festyle changes.Ad vised eat 3 meals daily with 1-2 healthy snacks, eliminate caloric drinks, no grazing btw meals, reduce packaged foods, portion control, modificati on of cooking style, low fat/low sugar items, 30 minutes of exercise at least 3x/week, reduce emotional/ stress eating, increase fruits/veg etables, take 15-20 minutes to eat.Encour aged pt to keep food diary for the next 2 weeks. Try to keep daily calorie count btw 9920-8460 calories. May need to consider referral to warehouse consultant/ nutritioni st as well.May also consider medication in the future (phentermi ne, topiramate , Contrave, Qysmia, Ozempic, bupropion) . Thyroid dysfunction 2645 69565 E07.9 New finding on labs tsh 0.100 (01/30/22) Pt asymptomat ic at this time. Will plan to repeat today. Diabetes mellitus 008423 E11.65 Stable, diet controlled since weight loss.A1C wnl (01/30/22) Pain in lower limb 34047 006 M79.604 M79.605 Chronic, recurrentS uspect arthritis since pt reports sx are the worst in the mornings and with cold weather, but improve with activity.A dvised pt to try taking meloxicam at night to combat morning stiffness. Also advised to double up dose for the next couple of weeks. [id number] TIAGO Velázquez [facility] Primary Care [address] [place] [address] 07/02/2022 10:00:29 07/02/2022 11:41:25 Thyroid dysfunction 987436666 E07.9 Stabletsh 0.100 (01/30/22) ; tsh, t3, t4 wnl (06/11/22).P t asymptomat ic at this time. Will continue to monitor regularly Diabetes mellitus 011881 E11.65 Stable, diet controlled since weight loss.A1C wnl (01/30/22) ; wnl (06/11/22)Al though well-contr olled with diet, recommend pt start GLP-1 to help keep sugars well-contr olled and promote weight loss. Pain in lower limb 62820 006 M79.604 M79.605 Chronic, improved with meloxicam increase.S uspect arthritis since pt reports sx are the worst in the mornings and with cold weather, but improve with activity and higher dose of meloxicam. Advised pt to try taking meloxicam at night to combat morning stiffness. Obstructiv e sleep apnea syndrome 32986640 G47.33 Chronic, not well controlled following weight loss.Pt reports she completed titration study a couple of weeks ago and has a f/u with sleep doctor in a couple of weeks.Prio r to weight loss, pt was using cpap nightly and reports she benefited from use, using current mask now, but hoping for the new one when she sees the sleep doctor. Body mass index 30+ - obesity 517675795 Z68.32 Not improved despite report of dieting/li festyle changes.Ad vised eat 3 meals daily with 1-2 healthy snacks, eliminate caloric drinks, no grazing btw meals, reduce packaged foods, portion control, modificati on of cooking style, low fat/low sugar items, 30 minutes of exercise at least 3x/week, reduce emotional/ stress eating, increase fruits/veg etables, take 15-20 minutes to eat.Review ed food diary and discussed reducing carbs, fats, and sugars. Avoid empty calories from soda, juice, sweet snacks. Gave meal planning handout. Try to keep daily calorie count btw 7797-8090 calories. May need to consider referral to warehouse consultant/ nutritioni st as well.May also consider medication in the future (phentermi ne, topiramate , Contrave, Qysmia, Ozempic, bupropion) .Goal is 3-4# weight loss before next visit. [id number] Matthew Alcantara MD [facility] Pulmonolo [address] [address] 07/16/2022 11:24:58 07/17/2022 08:29:14 Smoker 46562922 F17.218 F17.219 Z87.891 Obstructiv e sleep apnea syndrome 82172088 G47.33 Iron defic iency anemia 37454355 D50.9 [id number] TIAGO Velázquez [facility] [address] [facility] [address] [place] [address] 08/20/2022 10:25:30 08/20/2022 11:07:08 Diabetes mellitus 39082215 E11.65 Stable, diet controlled since weight loss.A1C wnl (01/30/22) ; wnl (06/11/22)Al though well-contr olled with diet, recommend pt continue GLP-1 to help keep sugars well-contr olled and promote weight loss. Body mass index 30+ - obesity 809425788 Z68.32 Improving with addition of GLP-1, down 10# since last visit.Advi sed eat 3 meals daily with 1-2 healthy snacks, eliminate caloric drinks, no grazing btw meals, reduce packaged foods, portion control, modificati on of cooking style, low fat/low sugar items, 30 minutes of exercise at least 3x/week, reduce emotional/ stress eating, increase fruits/veg etables, take 15-20 minutes to eat.Goal is 3-4# weight loss before next visit. Obstructiv e sleep apnea syndrome 09825333 G47.33 Chronic,im proving with getting back on cpap. Reviewed sleep/pulm onary note from Dr. Alcantara (07/16/22): Assessment : Nicotine use 1/2 ppd 1982-prese nt (quit 2 years in between) = 19 pack years. Mild OSAHS, AHI = 6 (2007). Mod OSAHS, AHI = 20 (2022). Iron deficiency anemia. Sinus bradycardi a.Plan: The following were reviewed and explained to the patient: Anna split sleep study 06/02/07 AHI = 6, PLMI = 22. [facility] diagnostic sleep study 04/15/22 AHI = 20, supine AHI = 60. [facility] titration sleep study 06/17/22 Travis small Aminta full face mask @ 16 cmH2O. Cough 57514915 R05.9 New problemSmo kers cough vs PND vs URIBased on pts descriptio n of phlegm being tannish/br ownish, suspect this is smoker's cough. Lungs CTAB on examinatio n. Encouraged pt to continue working toward smoking cessation. Advised to drink plenty of fluids, run a cool-mist humidifier in room at night, gargle salt water for sore throat, and get plenty of rest. Patient should reduce exposure to irritants such as smoke, cold, dry air, and dust. Lipoma of lower leg 1889 60295 D17.23 New problemRig ht shinpatien t with lipomatous lesion on physical exam. Advised these are normally benign. Discussed referral to gen surg for resection if it gets larger or becomes uncomforta ble. Abscess 743223501 L02.91 New problemRig ht shinResolv ed with use of otc PRID and BOUCHRA. No further interventi on indicated at this time. [id number] Matthew Alcantara MD [facility] Pulmon[facility] gy [address] [address] 10/15/2022 10:29:45 10/16/2022 08:02:34 Smoker 18653626 F17.218 F17.219 Z87.891 Obstructiv e sleep apnea syndrome 52173101 G47.33 Iron defic iency anemia 42767011 D50.9 [id number] Kelley Morin MD [facility] [address] [facility] [address] [place] [address] 11/26/2022 08:39:53 11/26/2022 09:38:59 Diabetes mellitus 28827135 E11.65 Stable, diet controlled since weight loss.A1C wnl (01/30/22) ; wnl (06/11/22)Al though well-contr olled with diet, recommend pt continue GLP-1 to help keep sugars well-contr olled and promote weight loss.Alee nue Trulicity 1.5mg weekly Administra tion of pneumococcal vaccine 11329913 Z23 Will give Prevnar 13 in office today per pulmonary recommenda tion. Needs infl uenza immunization 497129427 Z28.39 Pt advised we do not have flu vax in yet. Advised to check with retail pharmacy or be seen in 4-6 weeks. Screening mammography 24 847067 Z12.31 Due for routine mammogram. Screening for malignant neoplasm of colon 948883141 Z12.11 Due for colonoscop y. Bereavement 89940356 Z63 .4 New problemFol lowing of niece and brother in October.Pt encouraged to consider grief counseling . Irregular heart beat 361 295719 R00.8 R20.0 M79.602 New problemPt c/o facial numbness and left upper extrem pain for awhile now . Irregular HR found on examinatio n. Pt denies any cp, sob, palpitatio ns at this time.Will check ekg in office today. If normal, will send for echo. If abnormal will refer to cardiology for further evaluation /tx.Echo indicates sinus arrhythmia , which may be normal variant for this pt. No previous tracings available for review. Referred for echocardio gram. May still need to consider cardiology referral, especially in light of sudden cardiac-re lated of pts brother. Discussed s/s that warrant emergency evaluation in the meantime. Obstructiv e sleep apnea syndrome 76329227 G47.33 Chronic, improving with getting back on cpap. Reviewed sleep/pulm onary note from Dr. Alcantara (10/15/22): Assessment : Nicotine use 1/2 ppd 1982-prese nt (quit 2 years in between) = 19 pack years. Mild OSAHS, AHI = 6 (2007). Mod OSAHS, AHI = 20 (2022). Iron deficiency anemia, Sinus bradycardi a.Plan: The following were reviewed and explained to the patient: Anna split sleep study 06/02/07 AHI = 6, PLMI = 22. [facility] diagnostic sleep study 04/15/22 AHI = 20, supine AHI = 60. [facility] titration sleep study 06/17/22 Sanjiv & Sadia small Aminta full face mask @ 16 cmH2O.ESR 04/09/22 71 mm/hr, BUN 04/09/22 20 mg% , B12 04/09/22 >1000 pg/mL, Ferritin 04/09/22 9 ng/mL, Ferritin 09/21/22 29 ng/mL, Hgb 04/09/22 11.4 gm%, Hgb 09/21/22 11.2 gm%, Hct 04/09/22 35.5% , Hct 09/21/22 34.1%.Topher nunez cessation counseling provided. Patient will cut down on nicotine use and caffeine intake.Pat ient will discontinu e B12 supplement s. Patient will continue FeSO4 325 mg + Vit C 500 mg but increased from daily to twice daily to keep the ferritin > 75 ng/ml.We will hold off on dopaminerg ic therapy for now.Encour age patient to have colonoscop y as soon as possible.P AP compliance downloaded and interprete d x 20 minutes. Data reviewed and explained to the patient. Average apnea/hypo pnea index (AHI) is 0.5. Patient used PAP > 4 hours 88% of the time. PAP is set at 16 cmH2O. PAP will remain at 16 cmH2O. Oxygen supplement ation: none. Patient is benefiting from PAP therapy. Encouraged patient to maintain PAP use more than 70% of the time. Statement of PAP use and benefits will be sent to the home care store. [id number] Matthew Alcantara MD [facility] [place] [address] 01/14/2023 10:19:14 01/15/2023 08:45:32 Smoker 15713571 F17.218 F17.219 Z87.891 Obstructiv e sleep apnea syndrome 10900159 G47.33 Iron defic iency anemia 06343405 D50.9 [id number] Matthew Alcantara MD [facility] Pulmonolo gy [place] [address] [facility] [address] [place] [address] 04/15/2023 10:07:58 04/16/2023 08:28:54 Smoker 22839585 F17.218 F17.219 Z87.891 Obstructiv e sleep apnea syndrome 24537601 G47.33 Iron defic iency anemia 91690228 D50.9 [id number] TIAGO Simmons-Clemencia [facility] Primary Care [facility] [address] [place] [address] 05/12/2023 13:57:53 05/12/2023 14:44:17 Abnormal vaginal bleeding 927724559 N93.9 -pt has hx of hysterecto my, ovaries still intact-hx of kidney stones, with all but one being removed 4 years ago-ordere d US abd and pelvis Dysuria 09230335 R30.0 -recent blood in urine-viktor estrada with macrobid-s ymptoms have resolved-w ill obtain ua, dipstick-U S kidneys ordered Diabetes mellitus 369959 09 E11.9 -she is req an increase in her trulicity- starting trulicity 3mg Mixed anxi ety and depressive disorder 520682153 F41.8 -currently manages with alprazolam 0.5mg TID-she is wanting something that she can take daily-proz ac not working at 40mg dosage-inc reasing to 80mg daily-refe rral to counseling given [id number] Kelley Morin MD [facility] Primary Care [facility] [address] [place] [address] 06/18/2023 10:17:41 06/18/2023 11:06:44 Abnormal vaginal bleeding 554881179 N93.9 -pt has had no bleeding since out last visit-no futher tx needed Diabetes mellitus 134207 09 E11.9 -chronic, stable with use of meds-check s blood sugars daily, ranges between 80-90-refi ll trulicity given-labs obtained Mixed anxi ety and depressive disorder 685444284 F41.8 -chronic, stable with use of meds-she did not increase her fluoxetine as we discussed in last visit, would like to continue on-refill fluoxetine given Osteoarthritis 159297848 M19.90 M54.9 -notes neck/shoul oli pain that can be unbearable at times-hx of using meloxicam in the past, but has heard that meloxicam can be bad on the heart [id number] Matthew Alcantara MD [facility] [address] 08/19/2023 09:53:09 08/19/2023 11:30:41 Smoker 02420279 F17.218 F17.219 Z87.891 Obstructiv e sleep apnea syndrome 06270219 G47.33 Iron defic iency anemia 06660165 D50.9 [id number] Matthew Alcantara MD [facility] [address] 11/25/2023 10:19:02 11/26/2023 08:26:50 Obstructive sleep apnea syndrome [id number] G47.33 Iron defic iency anemia [id number] D50.9 [id number] Brenda payan MD [facility] Internal Med [address] [address] 02/10/2024 10:16:48 02/10/2024 11:16:44 Diabetes mellitus screening 777823467 Z13.1 Screening for osteoporosis 690519266 Z13.820 Generalize d anxiety disorder 97731318 F41.1 Long-term drug therapy [id number] Z79.343 [id number] Brenda payan MD [facility] Internal Med [place] [address] 1 02/24/2024 09:58:12 02/24/2024 10:33:02 Adult health examination 867735562 Z00.00 Screening for disorder 435960232 Z13.9 Insomnia 274768661 G47.0 0 [id number] Matthew Alcantara MD [facility] [place] [address] 0 02/24/2024 10:34:24 02/24/2024 17:07:13 Obstructive sleep apnea syndrome 57371270 G47.33 Iron defic iency anemia 77104021 D50.9 [id number] Avelino Pina DPM [facility] [place] [address] [place] [address] 1 03/16/2024 11:38:26 04/01/2024 04:07:12 [id number] Matthew Alcantara MD [facility] [address] [place] [address] 0 05/25/2024 10:14:49 05/25/2024 10:49:49 Obstructive sleep apnea syndrome 60857030 G47.33 Iron defic iency anemia 26687660 D50.9 [id number] Avelino Pina DPM [facility]_[place] [address] [place] [address] 1 06/15/2024 10:13:43 06/26/2024 10:56:58 Onychomycosis of toenails 272694414 B35.1 [id number] Brenda payan MD [facility] Internal Med [facility] [address] [place] [address] 1 06/22/2024 10:11:04 06/22/2024 10:39:43 Generalized anxiety disorder 17725327 F41.1 Essential hypertension 48723883 I10 Vertigo 915284137 R42 Insomnia 013670663 G47.0 0 Diabetes mellitus 579809 09 E11.9 Iron defic iency anemia 14386510 D50.9 [id number] Reji Smith MD [facility] [place] [address] [place] [address] 07/13/2024 10:21:45 07/13/2024 10:59:03 Benign paroxysmal positional vertigo 492626825 H81.10 Dysfunctio n of right eustachian tube [id number] 431536 H69.91 Health Concerns Section Related Observation LastModified by Organization Detai ls LastModified Time None Recorded Concern Status LastModified by Organization Details LastModified Time None Recorded Advance Directives Directive None Recorded Payers Encounter Date Sequence Insurance Name Policy Number Policy Colvin Covered Member ID Colvin Member ID Guarantor Name 03/16/2024 2 [place] [facility] Flor D Harsh [id number] Flor D Harsh 03/16/2024 1 [place] D Harsh [id number] Flor D Harsh 05/25/2024 2 [place] [facility] Flor D Harsh [id number] Flor D Harsh 05/25/2024 1 [place] D Harsh [id number] Flor D Harsh 06/15/2024 2 [place] [facility] Flor D Harsh [id number] Flor D Harsh 06/15/2024 1 [place] D Harsh [id number] Flor D Harsh 06/22/2024 2 [place] [facility] Flor D Harsh [id number] Flor D Harsh 06/22/2024 1 [place] D Harsh [id number] Flor D Harsh 07/13/2024 1 [place] D Harsh [id number] Flor D Harsh 07/13/2024 2 [place] D Harsh [id number] Flor D Harsh Notes Date Note Type Note Provider Name and Address Organization Details Recorded Time 03/16/2024 text/html Pt RTC for c/o N IDDM evaluation and preventative care. Education and gait analysis. Avelino Pina DPM [address] [place], [place] [address], [address], [place], [address], [place] [facility] 03/21/2024 09:04:38 05/25/2024 text/html Primary care/Ref erring provider: Raquel Blood APRN During the [facility] sleep study on 06/02/07, AHI = 6 and PLMI = 22. Patient has iron deficiency. During the [facility] repeat diagnostic sleep study on 04/15/22, AHI = 20, supine AHI = 60. At home since 11/25/23, the patient uses a [employer] AirSense 11 autoset unit with heated humidification. The patient does not need the ramp to start low and go up slowly on the pressure anymore. There is some xerostomia in a.m. There is no hose/mask condensation with water. The patient wears a [employer] small/medium Aminta full face mask without chin strap. There is no claustrophobia, no nostril/nose bridge irritation, no facial rash, no facial numbness, no nosebleeding. The patient feels refreshed upon waking and daytime alertness is improved. Energy levels are sustained until noon. At home, the patient sleeps from 10 pm to 5:30 am and wakes up with an alarm. Snoring: heavy, since 1980s.Snorting: noChoking: noCoughing: yesGasping: noGagging: noSighing: noWitnessed apnea: yesTwitching or jerking of leg(s), arm(s), body, head: yesTeeth grinding: noTeeth clenching: noSleeptalking: noSleepwalking: noSleep crying: noBedwetting: noTongue/lip/gum/cheek biting: noSleeping with open mouth: yesSleep paralysis: noHypnagogic hallucinations: noHypnopompic hallucinations: noVivid dreams: noDifficulty with sleep onset: yesDifficulty with sleep maintenance: yesSleep interruptions: nocturia x 3Patient wakes up with: fatigue, xerostomia, sore throatDaytime cataplexy: noMorning hypersomnolence: yesAfternoon hypersomnolence: yesCaffeine sources in diet: coffee 1 cup per day, soda 1 fountain drink per day Associated medical and psychiatric conditions:Congestive heart failure: noCoronary artery disease: noMyocardial infarction: noHypertension: yesStroke: noBronchial asthma: noChronic obstructive pulmonary disease: noDepression: yesBipolar disorder: noAnxiety: yesPanic disorder: noPosttraumatic stress disorder: noAttention deficit and hyperactivity disorder: noObsessive Compulsive disorder: noSchizophrenia: noSchizoaffective disorder: noPersonality disorder: noChronic analgesic use: noChronic sedative/hypnotic use: no EPWORTH SLEEPINESS SCALE (ESS) CHANCE OF DOZING SCORE0 = would never doze1 = slight chance of dozing2 = moderate chance of dozing3 = high chance of dozing SITUATION AND CHANCE OF DOZINGSitting and reading - 1Watching television - 1Sitting inactive in a public place (e.g. a theater or meeting) - 0As a passenger in a car for an hour without a break - 1Lying down to rest in the afternoon when circumstances permit - 1Sitting and talking to someone - 0Sitting quietly after lunch without alcohol - 1In a car, while stopped for a few minutes in the traffic - 0TOTAL SCORE 4Subjectively, patient has a slight chance of dozing. Matthew Alcantara MD [address] [address], [place], [address], [employer] [facility] 05/25/2024 10:44:26 06/15/2024 text/html Pt RTC for routi ne c/o thick, painful incurvated nails both feet, improving w/ previous tx. Avelino Pina DPM [address] [facility] [address], [place], [address], [employer] 06/19/2024 08:45:13 06/22/2024 text/html Flor presents today for 4 month follow up. She states that everybody in her house was sick and she has a sore throat. She states that she has a headache that is in the front/forehead region. 02/24/2024bonniepaty presents today for her Medicare Annual Wellness exam. 4Cmarty presents today to establish care as a new patient. She states that her blood sugars have been low. She has a history of a gastric bypass in 2018. She states that the previous provider would not prescribe her anxiety medication. Raquel Blood APRN [address], [address], [place], [address], [employer] 06/22/2024 10:36:55 07/13/2024 text/html This patient has a past medical history significant for diabetes, anemia, depression, MARICEL, HTN, and OA who presents to the office with a complaint of vertigo that began 2 months ago. She states that she had become under the weather at that time and had developed some right otalgia and muffled hearing. She has been on a round of oral antibiotics. She is taking meclizine as needed which is helping her symptoms. She does admit to position changes as an aggravating factor to her vertigo symptoms. TIAGO Andrew [address], [address], [place], [address], [employer] 07/13/2024 10:58:37 OBGyn Episode Ob Episode Information Episode Created Date Number of Fetuses Patient Bloodtype Patient rh Status Prepregnancy Weight lbs Domestic Partner Domestic Partner Phone Father Name Ekg Manager Status 07/03/19 23 1 CLOSED Fetus Data First Name Last Name Admitted to NICU Weight (g) Sex Living Outcome Pediatric Complications Fetus ID Race Codes Race Delivery Type Full Term 61 Mega Calculation Initial Mega Date Initial Exam Date Initial Exam Provider Initial Ultrasound Date Last Menstrual Period Date Ultra Sound Weeks Gestation 0 Eighteen To Twenty Week Mega Update Ultra Sound Date Fundal Height At Umbil Quickening Date Ultra Sound Latest Weeks Gestation Final Mega Confirmed By Final Mega Confirmed Date Final Mega Date Ultra Sound Latest Days Gestation 0 0 Menstrual History Last Menstrual Date Menses Monthly On Bcp Conception Prior Menses Frequency Hcg Plus Date Menarche Onset Age Delivery Information Delivery Date Delivery Type Labor Anesthesia Weeks Gestation Incision Type Labor Labor Length Hrs Delivered By Post Complications Tubal Sterilization Discharge Date Comments 3 Discharge Information Feeding Method Contraceptive Method Maternal HG B and HCT Levels Ob Episode Information Episode Created Date Number of Fetuses Patient Bloodtype Patient rh Status Prepregnancy Weight lbs Domestic Partner Domestic Partner Phone Father Name Ekg Manager Status 07/03/19 23 1 CLOSED Fetus Data First Name Last Name Admitted to NICU Weight (g) Sex Living Outcome Pediatric Complications Fetus ID Race Codes Race Delivery Type Full Term 62 Mega Calculation Initial Mega Date Initial Exam Date Initial Exam Provider Initial Ultrasound Date Last Menstrual Period Date Ultra Sound Weeks Gestation 0 Eighteen To Twenty Week Mega Update Ultra Sound Date Fundal Height At Umbil Quickening Date Ultra Sound Latest Weeks Gestation Final Mega Confirmed By Final Mega Confirmed Date Final Mega Date Ultra Sound Latest Days Gestation 0 0 Menstrual History Last Menstrual Date Menses Monthly On Bcp Conception Prior Menses Frequency Hcg Plus Date Menarche Onset Age Delivery Information Delivery Date Delivery Type Labor Anesthesia Weeks Gestation Incision Type Labor Labor Length Hrs Delivered By Post Complications Tubal Sterilization Discharge Date Comments 0 Discharge Information Feeding Method Contraceptive Method Maternal HG B and HCT Levels Ob Episode Information Episode Created Date Number of Fetuses Patient Bloodtype Patient rh Status Prepregnancy Weight lbs Domestic Partner Domestic Partner Phone Father Name Ekg Manager Status 07/03/19 23 1 CLOSED Fetus Data First Name Last Name Admitted to NICU Weight (g) Sex Living Outcome Pediatric Complications Fetus ID Race Codes Race Delivery Type Full Term 63 Mega Calculation Initial Mega Date Initial Exam Date Initial Exam Provider Initial Ultrasound Date Last Menstrual Period Date Ultra Sound Weeks Gestation 0 Eighteen To Twenty Week Mega Update Ultra Sound Date Fundal Height At Umbil Quickening Date Ultra Sound Latest Weeks Gestation Final Mega Confirmed By Final Mega Confirmed Date Final Mega Date Ultra Sound Latest Days Gestation 0 0 Menstrual History Last Menstrual Date Menses Monthly On Bcp Conception Prior Menses Frequency Hcg Plus Date Menarche Onset Age Delivery Information Delivery Date Delivery Type Labor Anesthesia Weeks Gestation Incision Type Labor Labor Length Hrs Delivered By Post Complications Tubal Sterilization Discharge Date Comments 6 Discharge Information Feeding Method Contraceptive Method Maternal HG B and HCT Levels
--- OUTSIDE RECORDS SUMMARY | 2024-08-08 16:12 | XMS_ITS | CONTINUITY OF CARE DOCUMENT ---
Author Name richard ramos Address Unknown Organization [facility] Address [address] [place] [address] Phone [phone] Care Team Providers Care Pipe Crew Foreman Name Role Phone Kaleb Bass MD Unavailable [phone] IMAN FLORES MD Unavailable [phone] MIRZA WANG Unavailable [phone] PROBLEMS Condition Status Date Provider Notes S/P Dual chamb PCM - Biotronik ( MRI Safe) active Evelina PENG Marianna d 04/23/23 ( MRI Safe) Family History of Hypertension: active ? Kaleb Bass MD Family History of Hypertension: active ? Kaleb Bass MD Family History of Sudden Cardiac : active ? Kaleb Bass MD Diabetes mellitus active Kaleb Bass MD HTN essential active Kaleb Bass MD Dizziness active Kaleb Bass MD Hyperlipidemia active ? Kaleb Bass MD Carotid artery disease active Kaleb Hare Sinus bradycardia active Azeb Ventimiglia TONNAGE COMPILATION CLERK Chest pain-type to be determined active Azeb Ventimiglia TONNAGE COMPILATION CLERK Nicotine dependence active Azeb Ventimigl ia TONNAGE COMPILATION CLERK Cold feet active Fernie Escamilla ENCOUNTERS Date Type Provider Location Encounter Diag nosis - In-person encounter Office Visit Kaleb Bass MD [facility] - In-person encounter Office Visit Kaleb Bass MD [facility] - In-person encounter Office Visit Kaleb Bass MD [facility] Office - In-person encounter Office Visit Kaleb Bass MD [facility] Cold feet - In-person encounter Office Visit Kaleb Bass MD [facility] - In-person encounter Office Visit Kaleb Bass MD [facility] - In-person encounter Office Visit Kaleb Bass MD [facility] - In-person encounter Office Visit Kaleb Bass MD [facility] - In-person encounter Office Visit Kaleb Bass MD [facility] Sinus bradycardiaChest pain-type to be determinedNicotine dependence - In-person encounter Office Visit Kaleb Bass MD [facility] HyperlipidemiaCarotid artery disease - In-person encounter Office Visit Kaleb Bass MD [facility] Family History of Hypertension:Family History of Hypertension:Family History of Sudden Cardiac :Diabetes mellitusHTN essentialDizziness VITAL SIGNS Date Observation Value Provider Body Mass Index (Ratio) 25.80 kg/m2 Kaleb Bass MD blood pressure, diastolic 65 mm[Hg] Kayleigh Michelle blood pressure, systolic 129 mm[Hg] Phyllis Michelle oxygen saturation, oximetry 99 % Laura Michelle pulse rate 59 /min Laura Michelle respiratory rate E&M 12 /min Laura Michelle weight E&M 157 [lb_av] Laura Michelle height E&M 65.4 [in_i] Laura Michelle blood pressure, cuff size regular An noelle Michelle Body Mass Index (Ratio) 28.11 kg/m2 Deon Cutler blood pressure, diastolic 57 mm[Hg] Ja rret blood pressure, systolic 112 mm[Hg] Bull hernandes pulse rate 60 /min Lukasz blood pressure, cuff size regular Ja rret oxygen saturation, oximetry 100 % Lukasz respiratory rate E&M 16 /min Lukasz weight E&M 171 [lb_av] Lukasz y height E&M 65.4 [in_i] [facility] Body Mass Index (Ratio) 27.45 kg/m2 Amari Escamilla pulse rate 61 /min [facility] blood pressure, cuff size regular [facility] blood pressure, diastolic 62 mm[Hg] [facility] blood pressure, systolic 118 mm[Hg] [facility] respiratory rate E&M 18 /min [facility] weight E&M 167 [lb_av] [facility] height E&M 65.4 [in_i] [facility] Body Mass Index (Ratio) 27.78 kg/m2 [facility] blood pressure, cuff size regular [facility] blood pressure, diastolic 71 mm[Hg] [facility] blood pressure, systolic 134 mm[Hg] [facility] oxygen saturation, oximetry 100 % [facility] pulse rate 62 /min [facility] respiratory rate E&M 15 /min [facility] iller weight E&M 169 [lb_av] [facility] height E&M 65.4 [in_i] [facility] Body Mass Index (Ratio) 27.45 kg/m2 [facility] am Macey blood pressure, cuff size regular rret blood pressure, diastolic 74 mm[Hg] Ja rret blood pressure, systolic 138 mm[Hg] Jar ret pulse rate 60 /min Lukasz respiratory rate E&M 12 /min Lukasz oxygen saturation, oximetry 100 % Lukasz weight E&M 167 [lb_av] Lukasz height E&M 65.4 [in_i] Lukasz y Body Mass Index (Ratio) 26.46 kg/m2 Kaleb Bass MD blood pressure, cuff size regular [facility] blood pressure, diastolic 68 mm[Hg] [facility] blood pressure, systolic 133 mm[Hg] [facility] oxygen saturation, oximetry 100 % [facility] respiratory rate E&M 16 /min [facility] pulse rate 64 /min [facility] weight E&M 161 [lb_av] [facility] height E&M 65.4 [in_i] [facility] Body Mass Index (Ratio) 27.78 kg/m2 [facility] oxygen saturation, oximetry 99 % [facility] respiratory rate E&M 16 /min [facility] pulse rate 67 /min [facility] weight E&M 169 [lb_av] [facility] height E&M 65.4 [in_i] [facility] Body Mass Index (Ratio) 27.78 kg/m2 Grah am Macey blood pressure, diastolic 65 mm[Hg] Chana nkLogic blood pressure, systolic 120 mm[Hg] Danuta kLogic blood pressure, cuff size regular Zaire rret blood pressure, diastolic 65 mm[Hg] Zaire marie blood pressure, systolic 120 mm[Hg] Bull hernandes pulse rate 51 /min Lukasz oxygen saturation, oximetry 99 % Lukasz respiratory rate E&M 12 /min Lukasz weight E&M 169 [lb_av] Lukasz height E&M 65.4 [in_i] Lukasz jamie pulse rate 66 /min [facility] oxygen saturation, oximetry 97 % [facility] respiratory rate E&M 17 /min [facility] Body Mass Index (Ratio) 44.05 kg/m2 [facility] weight E&M 268 [lb_av] [facility] blood pressure, diastolic 65 mm[Hg] [place] [facility] [facility] blood pressure, systolic 136 mm[Hg] De Los Santos yamilka [facility] blood pressure, diastolic, left arm 77 mm [Hg] [facility] blood pressure, systolic, left arm 149 mm [Hg] [facility] blood pressure, diastolic, right arm 80 m m[Hg] [facility] blood pressure, systolic, right arm 167 m m[Hg] [facility] Body Mass Index (Ratio) 43.56 kg/m2 [facility]alis[facility]renda [facility] blood pressure, diastolic 77 mm[Hg] [place] [facility] blood pressure, systolic 149 mm[Hg] Filiberto prather [facility] pulse rate 70 /min [facility] oxygen saturation, oximetry 99 % [facility] respiratory rate E&M 17 /min [facility] weight E&M 265 [lb_av] [facility] height E&M 65.4 [in_i] [facility] ALLERGIES No Known Drug Allergies HISTORY OF MEDICATION USE Medication Status Instructions Dates Provider Indications Com ments Klor-Con M20 20 mEq tablet,ER particles/crystals active Take 1 tablet by mouth once a day 04/06 Ruthie Box rosuvastatin 20 mg tablet active TAKE 1 TABLET BY MOUTH EVERY NIGHT AT BEDTIME 06/13 Charleen Rushing cephalexin 500 mg tablet active one tablet four times daily for 14 days Nathan Mcwilliams EL cephalexin 500 mg tablet active Take 1 tablet by mouth four times a day 05/12 Nathan Mcwilliams EL Percocet 5-325 mg tablet active 1 tablet by mouth three times a day as needed for pain 05/12 Kaleb Bass MD potassium chloride 20 mEq tablet extended release completed Take 1 tablet by mouth once a day 04/25 - 04/06 Ruthie Box Lipitor 20 mg tablet completed 1 tablet by mouth once a day 04/18 - Azeb Holleymiglia TONNAGE COMPILATION CLERK Levemir U-100 Insulin 100 unit/mL solution completed 15 unit once a day - Azeb Houserglpaty BECERRAP ASPIRIN 81 MG ORAL TABLET active 1 tablet once a day Azebanneliese Holleymiglpaty BECERRAP hydrochlorothiazide 25 mg tablet active 1 tablet once a day Azebanneliese Holleymiglia TONNAGE COMPILATION CLERK fosinopril 40 mg tablet active 1 tablet once a day Azebanneliese BECERRAP fluoxetine 40 mg capsule active 1 capsule once a day Azebanneliese Holleypasherry BECERRAP Bystolic 5 mg tablet completed 1 tablet on day - Azeb BECERRAP metformin 1,000 mg tablet completed 1 tablet twice a day - Azeb Holleymisherry ORDOÑEZ SOCIAL HISTORY Date Observation Value Provider drug use no Kaleb Bass MD alcohol use no Kaleb Bass MD smoking history, tot al pack/day 2-3 a day Kaleb Bass MD cigarette use yes Kaleb Bass MD smoking status Former smoker Kaleb Bass MD drug use no Kaleb Bass MD alcohol use no Kaleb Bass MD smoking history, tot al pack/day 2-3 a day Kaleb Bass MD cigarette use yes Kaleb Bass MD smoking status Former smoker Kaleb Bass MD drug use no Abdulaziz Macey alcohol use no Abdulaziz Macey smoking history, tot al pack/day 2-3 a day Abdulaziz Macey cigarette use yes Abdulaziz Viverosinar i smoking status Former smoker Abdulaziz Perez crys drug use no Sirena Arias alcohol use no Sirena Arias smoking history, tot al pack/day 2-3 a day Sirena Arias cigarette use yes Sirena Arias smoking status Former smoker Sirena Arias drug use no Sirena Arias alcohol use no Sirena Arias smoking history, tot al pack/day 2-3 a day Sirena Arias cigarette use yes Sirena Arias smoking status Former smoker Sirena Arias drug use no Kaleb Bass MD alcohol use no Kaleb Bass MD smoking history, tot al pack/day 2-3 a day Kaleb Bass MD cigarette use yes Kaleb Bass MD smoking status Former smoker Kaleb Bass MD social history reviewed E&M glenn ewed - no changes required Kaleb Bass MD social history E&M S moking History: Fabian hawkins is a former smoker. Kaleb Bass MD cigarette use yes Sirena Arias smoking status Former smoker Sirena Arias social history reviewed E&M glenn ewed - no changes required Kaleb Bass MD smoking history, tot al pack/day 2-3 a day Sirena Arias cigarette use yes Sirena Arias smoking status Current every day smoker [facility] drug use no Azeb Ventimig amber TONNAGE COMPILATION CLERK alcohol use no Azeb Ventimig amber [facility] cigarette use yes Azeb Holleymi glia [facility] smoking status Current every day smoker Matt Houserglpaty [facility] smoking/tobacco cess ation, patient education and counseling yes Kaleb Bass MD smoking history, tot al pack/day 2 Kaleb Bass MD cigarette use yes Kaleb Bass MD smoking status Current every day smoker Norbert gilberto Bass MD social history reviewed E&M revi ewed - no changes required Kaleb Bass MD smoking status Never smoker Adina Sharma social history reviewed E&M revi ewed - no changes required Adina Sharma FAMILY HISTORY Family Member Condition Father Family History of Langley dden Cardiac : Father Family History of Co ngestive Heart Failure: Father Family History of Hy pertension: Mother Family History of Langley dden Cardiac : Mother Family History of Co ngestive Heart Failure: Mother Family History of Hy pertension: Mother Family History of Di abetes: Full Brother Family History of Co ngestive Heart Failure: Full Brother Family History of Hy pertension: Full Brother Family History of Co ngestive Heart Failure: Father Family History of Langley dden Cardiac : Father Family History of Co ngestive Heart Failure: Mother Family History of Langley dden Cardiac : Mother Family History of Co ngestive Heart Failure: Father Family History of Co ngestive Heart Failure: INSURANCE PROVIDERS Payer name Policy type / Coverage type [place] ID [place] [employer] Medicare [id number] [facility] Medicaid 0 [id number] ADVANCE DIRECTIVES Name Date DISCUSSED - NO DECISION MADE TREATMENT PLAN Date Name Performer [id number],S,T he Patient was reencouraged to stop smoking. Kaleb Bass MD [id number],S, Kaleb Bass MD [id number],S,continues to have sx Kaleb Bass MD [id number],S, H er updated medication list for this problem includes: Fosinopril 40 Mg Tablet (Fosinopril) ..... 1 tablet once a day Kaleb Bass MD [id number],S,P t continues to have episodes of dizzines and near syncope. 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 We will implant a permanent pacemaker Kaleb Bass MD [id number],C,cessation enc ouraged Azebanneliese Larson [facility] [id number],C,will get upda estrada lipids [facility] [id number],C,will update c arotid duplex [facility] [id number],C,p atient reports indigestion like chest pain, dizziness and fatigue G iven risk factors-family hx, tobacco abues, HTN and hx of DM will plan stress testing W ill get updated lipids from PCP T he following medications were removed from the medication list: Bystolic 5 Mg Tablet (Nebivolol) ..... 1 tablet once a day Her updated medication list for this problem includes: Fosinopril 40 Mg Tablet (Fosinopril) ..... 1 tablet once a day [facility] [id number],C,R ate in 50s o n no rate lowering agents w ill plan tele monitor Azebanneliese Larson [facility] [id number],C,S he has had ongoing dizziness with fatigue. Noted more with position changes. S he had echo that showed normal EF no signficant valvular abnormalities S he is noted to be donovan rate of 50s S he will need tele monito for further evaluation O rders: 9 [id number] MOD 45-59 min (CPT-13472) S tress Exercise Cardiolite (CPT-22942) M onitor - Telemetry (Mobile Cardiac) (CPT-14315) C arotid Duplex Bilateral (CPT-36652) [facility] [id number],C,B P 120/65 today well controlled The following medications were removed from the medication list: Bystolic 5 Mg Tablet (Nebivolol) ..... 1 tablet once a day Her updated medication list for this problem includes: Hydrochlorothiazide 25 Mg Tablet (Hydrochlorothiazide) ..... 1 tablet once a day Fosinopril 40 Mg Tablet (Fosinopril) ..... 1 tablet once a day Azeb Larson [facility] [id number],C,c ontrolled per patient reports last Hemoglobin A1C 4.7% T he following medications were removed from the medication list: Metformin 1,000 Mg Tablet (Metformin) ..... 1 tablet twice a day Levemir U-100 Insulin 100 Unit/ml Solution (Insulin detemir u-100) ..... 15 unit once a day Her updated medication list for this problem includes: Fosinopril 40 Mg Tablet (Fosinopril) ..... 1 tablet once a day Azebanneliese Housersepaty [facility] Cardiology:This visi t has been a part of the consistent, comprehensive, and ongoing management of the chronic medical condition(s) listed above for the patient. Her updated medication list for this problem includes: Fosinopril 40 Mg Tablet (Fosinopril) ..... 1 tablet once a day Kaleb Bass MD Cardiology:This visi t has been a part of the consistent, comprehensive, and ongoing management of the chronic medical condition(s) listed above for the patient. BP today: 129/65 P rior BP: 112/57 (10/27/2023) Her updated medication list for this problem includes: Hydrochlorothiazide 25 Mg Tablet (Hydrochlorothiazide) ..... 1 tablet once a day Fosinopril 40 Mg Tablet (Fosinopril) ..... 1 tablet once a day Kaleb Bass MD Cardiology:This visi t has been a part of the consistent, comprehensive, and ongoing management of the chronic medical condition(s) listed above for the patient. Her updated medication list for this problem includes: Rosuvastatin 20 Mg Tablet (Rosuvastatin) ..... Take 1 tablet by mouth every night at bedtime Kaleb Bass MD Cardiology:This visi t has been a part of the consistent, comprehensive, and ongoing management of the chronic medical condition(s) listed above for the patient. Her updated medication list for this problem includes: Fosinopril 40 Mg Tablet (Fosinopril) ..... 1 tablet once a day Kaleb Bass MD Cardiology:will obta in lipid panel. Her updated medication list for this problem includes: Crestor 20 Mg Tablet (Rosuvastatin) ..... Take 1 tablet by mouth every night at bedtime & #13;This visit has been a part of the consistent, comprehensive, and ongoing management of the chronic medical condition(s) listed above for the patient. Kaleb Bass MD Cardiology:BP is nor mal B P today: 112/57 P rior BP: 118/62 (06/14/2023) Her updated medication list for this problem includes: Hydrochlorothiazide 25 Mg Tablet (Hydrochlorothiazide) ..... 1 tablet once a day Fosinopril 40 Mg Tablet (Fosinopril) ..... 1 tablet once a day Kaleb Bass MD Cardiology:Per PCP H er updated medication list for this problem includes: Fosinopril 40 Mg Tablet (Fosinopril) ..... 1 tablet once a day Kaleb Bass MD Cardiology: H er updated medication list for this problem includes: Fosinopril 40 Mg Tablet (Fosinopril) ..... 1 tablet once a day Abdulazizquinten Choudhury Cardiology: H er updated medication list for this problem includes: Crestor 20 Mg Tablet (Rosuvastatin) ..... Take 1 tablet by mouth every night at bedtime Abdulazizquinten Choudhury Cardiology: P rior BP: 118/62 (06/14/2023) Her updated medication list for this problem includes: Hydrochlorothiazide 25 Mg Tablet (Hydrochlorothiazide) ..... 1 tablet once a day Fosinopril 40 Mg Tablet (Fosinopril) ..... 1 tablet once a day [facility]:start cre stor 20mg H er updated medication list for this problem includes: Crestor 20 Mg Tablet (Rosuvastatin) ..... Take 1 tablet by mouth every night at bedtime Fernie Escamilla Cardiology: H er updated medication list for this problem includes: Fosinopril 40 Mg Tablet (Fosinopril) ..... 1 tablet once a day Fernie Escamilla Cardiology:denies of chest pains Fernie Escamilla Cardiology: H er updated medication list for this problem includes: Hydrochlorothiazide 25 Mg Tablet (Hydrochlorothiazide) ..... 1 tablet once a day Fosinopril 40 Mg Tablet (Fosinopril) ..... 1 tablet once a day BP today: 118/62 P rior BP: 134/71 (04/28/2023) Fernie Escamilla Cardiology:check DOROTA , patient has known vascular disease in carotid, she has been started on lipid lowering agent with crestor 20mg once daily Fernie Fairmont Cardiology: H er updated medication list for this problem includes: Fosinopril 40 Mg Tablet (Fosinopril) ..... 1 tablet once a day Kaleb Bass MD Cardiology: p acemkaer implanted Kaleb Bass MD Cardiology: B P today: 134/71 P rior BP: 138/74 (04/07/2023) Her updated medication list for this problem includes: Hydrochlorothiazide 25 Mg Tablet (Hydrochlorothiazide) ..... 1 tablet once a day Fosinopril 40 Mg Tablet (Fosinopril) ..... 1 tablet once a day Kaleb Bass MD Cardiology Kaleb Bass MD Cardiology: B P today: 138/74 P rior BP: 133/68 (02/22/2023) Her updated medication list for this problem includes: Hydrochlorothiazide 25 Mg Tablet (Hydrochlorothiazide) ..... 1 tablet once a day Fosinopril 40 Mg Tablet (Fosinopril) ..... 1 tablet once a day Kaleb Bass MD Cardiology:pacemkaer implanted Norbert Bass MD Cardiology:The Patie nt was reencouraged to stop smoking. Kaleb Bass MD Cardiology Kaleb Bass MD Cardiology:continues to have sx Kaleb Bass MD Cardiology: H er updated medication list for this problem includes: Fosinopril 40 Mg Tablet (Fosinopril) ..... 1 tablet once a day Kaleb Bass MD Cardiology:Pt contin ues to have episodes of dizzines and near syncope. 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 We will implant a permanent pacemaker Kaleb Bass MD Cardiology:cessation encouraged Quail Neo [facility] Cardiology:will get updated lipi ds [facility] Cardiology:will update carotid d uplex [facility] Cardiology:patient r eports indigestion like chest pain, dizziness and fatigue G iven risk factors-family hx, tobacco abues, HTN and hx of DM will plan stress testing W ill get updated lipids from PCP T he following medications were removed from the medication list: Bystolic 5 Mg Tablet (Nebivolol) ..... 1 tablet once a day Her updated medication list for this problem includes: Fosinopril 40 Mg Tablet (Fosinopril) ..... 1 tablet once a day [facility] Cardiology:Rate in 5 0s o n no rate lowering agents w ill plan tele monitor [facility] Cardiology:She has h ad ongoing dizziness with fatigue. Noted more with position changes. S he had echo that showed normal EF no signficant valvular abnormalities S he is noted to be donovan rate of 50s S he will need tele monito for further evaluation O rders: 9 9204 MOD 45-59 min (CPT-42889) S tress Exercise Cardiolite (CPT-88644) M onitor - Telemetry (Mobile Cardiac) (CPT-53440) C arotid Duplex Bilateral (CPT-93442) [facility] Cardiology:BP 120/65 today well controlled The following medications were removed from the medication list: Bystolic 5 Mg Tablet (Nebivolol) ..... 1 tablet once a day Her updated medication list for this problem includes: Hydrochlorothiazide 25 Mg Tablet (Hydrochlorothiazide) ..... 1 tablet once a day Fosinopril 40 Mg Tablet (Fosinopril) ..... 1 tablet once a day Azeb Larson [facility] Cardiology:controlle d per patient reports last Hemoglobin A1C 4.7% T he following medications were removed from the medication list: Metformin 1,000 Mg Tablet (Metformin) ..... 1 tablet twice a day Levemir U-100 Insulin 100 Unit/ml Solution (Insulin detemir u-100) ..... 15 unit once a day Her updated medication list for this problem includes: Fosinopril 40 Mg Tablet (Fosinopril) ..... 1 tablet once a day Azeb Larson [facility] Date Name LIPID PANEL X-Ray, Chest 2 View Complete Echo RPM (remote patient monitoring) Venous Doppler Bilat eral UE Arterial Duplex Uppe r Extremity Bilateral Arterial Duplex Bi-L ower EX URINALYSIS, COMPLETE W/REFLEX TO CULTURE COMPREHENSIVE METABO LIC PANEL, W/EGFR CBC (INCLUDES DIFF/P LT) Partial Thromboplast in Time, Activated PROTHROMBIN TIME WIT H INR X-Ray, Chest - Routi ne CXR- PA/Lat X-Ray, Chest - Routi ne BASIC METABOLIC PANE L W/EGFR Microalb/Creatinine Urine, Random BASIC METABOLIC PANE L W/EGFR PROBNP, N TERMINAL BASIC METABOLIC PANE L W/EGFR Lipoprotein (a) CRP, high sensitivit y HEMOGLOBIN A1c LIPID PANEL URINALYSIS, COMPLETE W/REFLEX TO CULTURE COMPREHENSIVE METABO LIC PANEL, W/EGFR CBC (INCLUDES DIFF/P LT) PROTHROMBIN TIME WIT H INR Partial Thromboplast in Time, Activated Carotid Duplex Bilat eral Monitor - Telemetry (Mobile Cardiac) Stress Exercise Card iolite LIPID PANEL Carotid Duplex Bilat eral Mobile Cardiac Tele Complete Echo STR - Nuclear HISTORY OF PROCEDURES Procedure Date Procedure Name Provider Procedure Notes S tatus Complex e/m visit add on Kaleb Bass MD completed Complex e/m visit add on Kaleb Bass MD completed EKG Kaleb Bass MD completed EKG Kaleb Bass MD completed
--- OUTSIDE RECORDS SUMMARY | 2024-08-08 16:12 | XMS_ITS | Encounter Summary ---
Author Organization [facility] Healthcare Address [address] [place] [address] Care Team Providers Care Wheel Truing Machine Tender Name Role Phone Jag Marcano MD Primary Care Provider + Jag Marcano MD Primary Care Provider + Jag Marcano MD Unavailable Miscellaneous, Not In File Primary Care Provider Unavailable Encounter Details Date Type Department Care Team (Late st Contact Info) Description 09/20/2017 Community Orders [facility] EpicCare Link Jag Marcano MD [address] [place], [place] [id number] Shoulder arthritis (Primary Dx); Cervical arthritis ([facility]) Social History Tobacco Use Types Packs/Day Years Used Date Smoking Tobacco: Former Comments Unknown Sex and Gender Information Value Date Recorded Sex Assigned at Not on file 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 Gender Identity Not on file Sexual Orientation Not on file documented as of this encounter Plan of Treatment Not on file documented as of this encounter Visit Diagnoses Diagnosis Shoulder arthritis- Primary Unspecified arthropathy, shoulder region Cervical arthritis Cervical spondylosis without myelopathy documented in this encounter Care Teams Wheel Truing Machine Tender Relationship Specialty Start Date End Date Jag Marcano MD [address] [place], [place] [id number] PCP - General 05/25/16 10/20/18 Jag Marcano MD [address] [id number] PCP - General 10/21/18 02/11/23 Miscellaneous, Not In File PCP - General 02/12/23 Jag Marcano MD [address] [facility] [address] [address] 10/21/18 documented as of this encounter
--- OUTSIDE RECORDS SUMMARY | 2024-08-08 16:12 | XMS_ITS | Clinical Summary ---
Author Organization [facility] Address [address] [place] [address] Care Team Providers Care Aircraft Electrical Systems Specialist Name Role Phone Unavailable Primary Care Provider Unavailabl e Social History Tobacco Use Types Packs/Day Years Used Date Smoking Tobacco: Never Assessed Comments Unknown Sex and Gender Information Value Date Recorded Sex Assigned at Not on file Legal Sex Female 6:20 PM CDT Gender Identity Not on file Sexual Orientation Not on file Plan of Treatment Health Maintenance Due Date Last Done Comments Colorectal Cancer Screening Colonoscopy (10 Years) 1958 Hepatitis C 1976 DTaP, Tdap and Td Vaccines ( 1 - Tdap) 1977 Mammogram Screening 1998 Pneumococcal Vaccine: 50+ Ye ars (1 of 1 - PCV) 2008 Zoster Vaccines (1 of 2) 2008 Dexa Scan (General) 2023 COVID-19 Vaccine ( - 2023-2 5 season) 2023 RSV Immunization or 60+ Years (1 - 1-dose 75+ series) 2033 Meningococcal B Vaccine Aged Out No l onger eligible based on patient's age to complete this topic Meningococcal Vaccine Aged Out No hussein cori eligible based on patient's age to complete this topic RSV Immunizations Under 20 Months Aged Out No longer eligible based on patient's age to complete this topic
--- OUTSIDE RECORDS SUMMARY | 2024-08-08 16:12 | XMS_ITS | Clinical Summary ---
Author Organization [facility] Address [address] [place] [address] Care Team Providers Care Crown Perforator Operator Name Role Phone Jag Marcano MD Unavailable [phone] Miscellaneous, Not In File Primary Care Provider Unavailable Allergies No known active allergies Medications aspirin 81 mg tablet Take 1 tablet (81 mg total) by mouth nightly Active multivitamin tabletIndicatio ns:Vitamin Deficiency Prevention Take 1 tablet by mouth daily Active ALPRAZolam (XANAX) 0.5 mg tablet TAKE 1 TABLET BY MOUTH THREE TIMES DAILY 90 tablet 2 2 Active Additional Information Patient taking differently: 0.5 mg oral 3 times daily PRN, Informant: Self, Reported on 02/16/2023 fosinopriL (MONOPRIL) 40 mg tablet TAKE 1 TABLET BY MOUTH DAILY 90 tablet 2 Active Additional Information Patient taking differently: 40 mg oral Daily, Informant: Self, Reported on 02/16/2023 hydroCHLOROthia zide (HYDRODIURIL) 25 mg tablet TAKE 1 TABLET BY MOUTH EVERY DAY 90 tablet 2 Active Additional Information Patient taking differently: 25 mg oral Daily, Informant: Self, Reported on 02/16/2023 FLUoxetine (PROzac) 40 mg capsule TAKE 1 CAPSULE BY MOUTH DAILY 90 capsule 2 Active Additional Information Patient taking differently: 40 mg oral Nightly, Informant: Self, Reported on 02/16/2023 ascorbic acid with mary hips 500 mg tablet Take 1 tablet/chew tab (500 mg total) by mouth 2 (two) times a day 3 Active baclofen (LIORESAL) 10 mg tablet Take 1 tablet (10 mg total) by mouth 3 (three) times a day as needed Active Trulicity 1.5 mg/0.5 mL pen injector Inject under the skin once a week Take on Wednesday in the evening 3 Active FeroSuL 325 mg (65 mg iron) tablet Take 1 tablet (325 mg total) by mouth 2 times daily 3 Active nystatin cream Apply 1 Application topically daily Active potassium chloride ER 20 mEq CR tablet Take 1 tablet (20 mEq total) by mouth daily 3 Active ibuprofen (ADVIL,MOTRIN) 800 mg tablet Take 1 tablet (800 mg total) by mouth every 8 (eight) hours as needed for pain 20 tablet 4 Active Active Problems Problem Noted Date Diagnosed Date Cardiac pacemaker 04/23/2023 Cardiac pacemaker in situ 04/07/2023 Sinus bradycardia 02/01/2023 Constipation 06/05/2021 Obesity (BMI 30.0-34.9) 01/20/2021 Adhesive capsulitis of right shoulder 01/20/2021 Mixed hyperlipidemia 02/05/2020 Overview (02/05/2020): Continue Sciatica of left side 02/05/2020 Overview (02/05/2020): Per ortho Type 2 diabetes mellitus wit hout complication, without long-term current use of insulin 02/05/2020 Overview (02/05/2020): Same meds Bariatric surgery status 10/11/2017 Intestinal malabsorption 10/11/2017 Hypertension 10/11/2017 Obstructive sleep apnea 10/11/2017 Immunizations Immunization Administration Dates Next Due Influenza, Quadrivalent, Spl it, Preservative Free, Intramuscular 01/24/2018,01/23/2018 Influenza, Unspecified 06/24/2017 Surgical History Surgery Date Site/Laterality Comments CHARLINE-EN-Y PROCEDURE FL UPPER GI AIR CONTRAST W KUB 04/11/2020 Left SECTION CHOLECYSTECTOMY HYSTERECTOMY HERNIA REPAIR INSERT / REPLACE / REMOVE PACEMAKER 03/11/2023 biotronik Medical History Medical History Date Comments Sleep apnea Hypertension Type 2 diabetes mellitus (HCC) Intestinal malabsorption Sinus bradycardia Anemia Depression Family History Medical History Relation Name Comments Cancer Father Family history of malignant neoplasm - (Added by TW Conv)/Family history of malignant neoplasm - (Added by TW Conv) Diabetes Father Family history of diabetes mellitus - (Added by TW Conv)/Family history of diabetes mellitus - (Added by TW Conv) Heart attack Father Family history of myocardial infarction - (Added by TW Conv)/Family history of myocardial infarction - (Added by TW Conv) Heart disease Father Family history of cardiac disorder - (Added by TW Conv)/Family history of cardiac disorder - (Added by TW Conv) Hypertension Father Family history of hypertension - (Added by TW Conv)/Family history of hypertension - (Added by TW Conv) Obesity Father Overweight - (A dded by TW Conv)/Overweight - (Added by TW Conv) Cancer Mother Family history of malignant neoplasm - (Added by TW Conv)/Family history of malignant neoplasm - (Added by TW Conv) Diabetes Mother Family history of diabetes mellitus - (Added by TW Conv)/Family history of diabetes mellitus - (Added by TW Conv) Heart attack Mother Family history of myocardial infarction - (Added by TW Conv)/Family history of myocardial infarction - (Added by TW Conv) Heart disease Mother Family history of cardiac disorder - (Added by TW Conv)/Family history of cardiac disorder - (Added by TW Conv) Hypertension Mother Family history of hypertension - (Added by TW Conv)/Family history of hypertension - (Added by TW Conv) Cancer Other 1 Family history of malignant neoplasm - (Added by TW Conv) Diabetes Other 2 Family history of diabetes mellitus - (Added by TW Conv) Diabetes Other 3 Family history of diabetes mellitus - (Added by TW Conv) Cancer Other 4 Family history of malignant neoplasm - (Added by TW Conv) Relation Name Status Comments Father Mother Other 1 Other 2 Other 3 Other 4 Social History Tobacco Use Types Packs/Day Years Used Date Smoking Tobacco: Former Cigarettes Smokeless Tobacco: Never Tobacco Cessation:Counseling Given: Not Answered Alcohol Use Standard Drinks/Week Comments Yes 0 (1 standard drink = 0.6 oz pur e alcohol) social AUDIT-C Answer Date Recorded Q1: How often do you have a drink containing alcohol? Never 04/23/2023 Q2: How many drinks containi ng alcohol do you have on a typical day when you are drinking? Patient does not drink Q3: How often do you have si x or more drinks on one occasion? Never 04/23/2023 Personal Safety Answer Date Recorded Have you ever been in or are you currently in a harmful physical or emotional relationship or is someone making you feel afraid or unsafe? Denies 12/19/2023 Comments No Sex and Gender Information Value Date Recorded Sex Assigned at Not on file Legal Sex Female 9:02 AM DIE PRESS OPERATOR Gender Identity Not on file Sexual Orientation Not on file Obstetrics History Last Filed Vital Signs Vital Sign Reading Time Taken Comments Blood Pressure 136/56 12/19/2023 2:21 PM CDT Pulse 63 12/19/2023 2:21 PM CDT Temperature 36.6 C (97.9 F) 12/19/2023 2:21 PM CDT Respiratory Rate 16 12/19/2023 2:21 PM CDT Oxygen Saturation 100% 12/19/2023 2:21 PM CDT Inhaled Oxygen Concentration - - Weight 77.1 kg (170 lb) 12/19/2023 2:21 PM CDT Height 162.6 cm (5' 4 ) 12/19/2023 2:21 PM CDT Body Mass Index 29.18 12/19/2023 2:21 PM CDT Plan of Treatment Health Maintenance Due Date Last Done Comments Albumin Creatinine Ratio, Urine 1958 Breast Cancer Screening-Mammogram 1958 Colon Cancer Screening-Colonoscopy 1958 Depression Screening 1958 Hepatitis C Screening 1958 Osteoporosis Screening-Bone Density Scan 1958 Dilated Eye Exam 1958 Foot Exam 1958 DTaP/Tdap/Td Vaccine (1 - Tdap) 1969 Hepatitis B Screening 1976 Zoster Vaccine (1 of 2) 2008 Lipid Panel 06/05/2022 06/05/2021, 08/0 05/2020, 02/05/2020, Additional history exists Pneumococcal vaccine 65+ (2 of 2 - PPSV23) 01/21/2023 11/26/2022 Well Visit 65+ 2023 Hemoglobin A1C 10/22/2023 04/23/2023, 03/0 06/2021, 11/04/2020, Additional history exists Covid-19 Vaccine (3 - 2023-2 5 season) 2023 10/05/2020, 09/14/2020 Influenza Vaccine (#1) 2023 , 01/24/2018, 01/23/2018, Additional history exists eGFR 04/23/2024 04/23/2023, 0 06/2021, 02/05/2020, Additional history exists Fall Risk Assessment 04/24/2024 04/24/2023 Medical Devices Implanted Type Area Layout Man Device Identifier Shelf Expiration Date Model / Serial / Lot [employer] Promri Solia S 60cm Lead Pacing Steroid Eluting [id number] - [id number] - [id number] Implanted:Qty: 1 on 03/11/2023 by Kaleb Bass MD at [facility] Lead Left: Heart [employer] 02/02/2025 [id number] / [id number] / [employer] Solia S 53cm Steroid Elute Bipolar Active Fixation Endocardial 234858 - [id number] - [id number] Implanted:Qty: 1 on 03/11/2023 by Kaleb Bass MD at [facility] Left: Heart [employer] [id number] 02/02/2025 [id number] / [id number] / Description:Atrial lead [employer] Edora Promri 08o87c5.5mm Dual Chamber Rate Adaptive Unipolar Bipolar 821065 - [id number] - [id number] Implanted:Qty: 1 on 03/11/2023 by Kaleb Bass MD at [facility] Left: Chest [employer] [id number] 07/03/2024 [id number] / [id number] / [employer] Promri Solia S 60cm Lead Pacing Steroid Eluting 985426 - [id number] - [id number] Implanted:Qty: 1 on 04/23/2023 by Kaleb Bass MD at [facility] Left: Chest [employer] 02/02/2025 [id number] / [id number] / [employer] Od6.4 Mm Id3.4 Mm L26 Mm Sealing Adapter Cap Lead Silicone Ster [id number] - [id number] Implanted:Qty: 1 on 04/23/2023 by Kaleb Bass MD at [facility] Left: Chest [employer] 09/02/2024 [id number] / / [id number] Procedures Procedure Name Priority Date/Time Associated Diagnosis Comments EGFR STAT 04/23/2023 12:52 PM DIE PRESS OPERATOR HEMOGLOBIN A1C STAT 04/23/2023 12:52 PM DIE PRESS OPERATOR POCT LIPID PANEL Routine 06/05/2021 1:38 PM DIE PRESS OPERATOR Mixed hyperlipidemia Type 2 diabetes mellitus without complication, without long-term current use of insulin (HCC) from Last 3 Months or Most Recently Relevant to Health Maintenance Results * eGFR (04/23/2023 12:52 PM DIE PRESS OPERATOR) eGFR 97 mL/min/1. 73 m2 JOSI LEY Comment: Interpretive Data Reference Interval Normal >/= 90 mL/min/1.73m2 Mildly decreased* 60 - 89 mL/min/1.73m2 Mildly to moderately decreased 45 - 59 mL/min/1.73m2 Moderately to severely decreased 30 - 44 mL/min/1.73m2 Severely decreased 15 - 29 mL/min/1.73m2 Kidney Failure < 15 mL/min/1.73m2 *Relative to young adult level Estimated glomerular filtration rate is determined by the 2020 CKD-EPI equation recommended by the National Kidney Foundation (A Unifying Approach to GFR Estimation: Recommendations of the NKF-ASK Task Force on Reassessing the Inclusion of Race in Diagnosing Kidney Disease, JASN 202). The CKD-EPI equation should not be used for patients with unstable renal function and has not been validated in children and those over 70. Current interpretive data was last reviewed 2021. Blood 04/23/2023 12:5 2 PM DIE PRESS OPERATOR 04/23/2023 1:16 PM DIE PRESS OPERATOR us Vega Oliver NP LAB BLOOD ORDERABLES Final Result JOSI LEY [address] [facility] [place] [address] * Hemoglobin A1c (04/23/2023 12:52 PM DIE PRESS OPERATOR) Hgb A1C 5.0 4.0 - 5.6 % JOSI LEY Estimated Average Glucose 97 mg/dL JOSI LEY Comment: The ADA recommends reporting an estimated Average Glucose (eAG) with all Hemoglobin A1c results using the equation derived from a study of 507 normal and diabetic adults. Minority populations were underrepresented and children were not included. (Diabetes Care 31:8895-5410, 2008). The eAG is not equivalent to a fasting glucose. Blood 04/23/2023 12:5 2 PM DIE PRESS OPERATOR 04/23/2023 1:15 PM DIE PRESS OPERATOR Vega Oliver NP LAB BLOOD ORDERABLES Final Result JOSI [address] Department [place] [address] * POCT lipid panel (06/05/2021 1:38 PM DIE PRESS OPERATOR) Cholesterol, POC 182 mg/dL HDL, POC 32 mg/dL Triglycerides, POC 199 mg/dL LDL Cholesterol POC 110 mg/dL Chol/HDL Ratio, POC 5.6 Non-HDL Cholesterol, POC 149 mg/dL Cholesterol Total, POC 182 mg/dL Capillary blood 06/05/2021 1 :38 PM DIE PRESS OPERATOR Jag Marcano MD POINT OF CARE TEST ORDER LUIS F Final Result from Last 3 Months or Most Recently Relevant to Health Maintenance Insurance [facility] IDPA MEDICARE IDPA [facility] OPEN ACCESS [facility] OPEN ACCESS [facility] MEDICARE IDPA Advance Directives For more information, please contact: [phone] * Full Code (Latest Code Status on File) Date Activated Date Inactivated Comments 04/23/2023 10:59 AM 04/24/2023 8:38 PM Care Teams Crown Perforator Operator Relationship Specialty Start Date End Date Miscellaneous, Not In File PCP - General 02/12/23 Jag Marcano MD [address] [facility] [address] [place] [address] 10/21/18
--- OUTSIDE RECORDS SUMMARY | 2024-08-08 16:12 | XMS_ITS | Referral Summary ---
Author Organization [facility] Address [address] [place] [address] Care Team Providers Care Talent Acquisition Project Manager Name Role Phone Jag Marcano MD Unavailable [phone] Miscellaneous, Not In File Primary Care Provider [...] Preservative Free, Intramuscular 01/24/2018,01/23/2018 Influenza, Unspecified 06/24/2017 Social History Tobacco Use Types Packs/Day Years [...] on file Legal Sex Female 9:02 AM FIRE PROTECTION DESIGNER Gender Identity Not on file Sexual Orientation Not on file Last Filed Vital Signs Vital Sign Reading [...] 12/19/2023 2:21 PM CDT Plan of Treatment Not on file Medical Devices Implanted Type Area Hygiene Coordinator Device Identifier Shelf Expiration Date Model / Serial / Lot [employer] Promri Solia S 60cm Lead Pacing Steroid Eluting 937237 - [id number] - [id number] Implanted:Qty: 1 on 03/11/2023 by Kaleb Bass MD at [facility] Lead Left: Heart [employer] 02/02/2025 [id number] / [id number] / [employer] Solia S 53cm Steroid Elute Bipolar Active Fixation Endocardial 510852 - [id number] - [id number] Implanted:Qty: 1 on 03/11/2023 by Kaleb Bass MD at [facility] Left: Heart [employer] [id number] 02/02/2025 [id number] / [id number] / Description:Atrial lead [employer] Edora Promri 42a39f8.5mm Dual Chamber Rate Adaptive Unipolar Bipolar 409840 - [id number] - [id number] Implanted:Qty: 1 on 03/11/2023 by Kaleb Bass MD at [facility] Left: Chest [employer] [id number] 07/03/2024 [id number] / [id number] / [employer] Promri Solia S 60cm Lead Pacing Steroid Eluting 061839 - [id number] - [id number] Implanted:Qty: 1 on 04/23/2023 by Kaleb Bass MD at [facility] Left: Chest [employer] 02/02/2025 928691 / [id number] / [employer] Od6.4 Mm Id3.4 Mm L26 Mm Sealing Adapter Cap Lead Silicone Ster [id number] - [id number] Implanted:Qty: 1 on 04/23/2023 by Kaleb Bass MD at [facility] Left: Chest [employer] 09/02/2024 [id number] / / [id number] Procedures Procedure Name Priority Date/Time Associated Diagnosis Comments EGFR STAT 04/23/2023 12:52 PM FIRE PROTECTION DESIGNER HEMOGLOBIN A1C STAT 04/23/2023 12:52 PM FIRE PROTECTION DESIGNER POCT LIPID PANEL Routine 06/05/2021 1:38 PM FIRE PROTECTION DESIGNER Mixed hyperlipidemia Type 2 diabetes mellitus without complication, without long-term current use of insulin ([facility]) from Last 3 Months or Most Recently Relevant to Health Maintenance Results * eGFR (04/23/2023 12:52 PM FIRE PROTECTION DESIGNER) Pathologist [facility] eGFR 97 mL/min/1. 73 m2 JOSI LEY [...] of Race in Diagnosing Kidney Disease, JASN 2020). The CKD-EPI equation should not be used for patients with unstable renal function and has not been validated in children and those over 70. Current interpretive data was last reviewed 2021. Blood 04/23/2023 12:5 2 PM FIRE PROTECTION DESIGNER 04/23/2023 1:16 PM FIRE PROTECTION DESIGNER Vega Oliver PIECE MEAT TRIMMER LAB BLOOD ORDERABLES Final Result Performing Organization Address [facility] Co de Phone Number GALILEASHANTA LEY [address] [place] [address] * Hemoglobin A1c (04/23/2023 12:52 PM FIRE PROTECTION DESIGNER) Hgb A1C 5.0 4.0 - 5.6 % JOSI LEY Estimated Average Glucose 97 mg/dL JOSI Comment: The ADA recommends reporting an estimated Average Glucose (eAG) with all Hemoglobin A1c results using the equation derived from a study of 507 normal and diabetic adults. Minority populations were underrepresented and children were not included. (Diabetes Care 31:0761-5712, 2008). The eAG is not equivalent to a fasting glucose. Blood 04/23/2023 12:5 2 PM FIRE PROTECTION DESIGNER 04/23/2023 1:15 PM FIRE PROTECTION DESIGNER Vega Oliver NP LAB BLOOD ORDERABLES Final Result Performing Organization Address City/[facility]/ZIP Co de Phone Number JOSI LEY [address] [place] [place] [address] * POCT lipid panel (06/05/2021 1:38 PM FIRE PROTECTION DESIGNER) Cholesterol, POC 182 mg/dL HDL, POC 32 mg/dL Triglycerides, POC 199 mg/dL LDL Cholesterol POC 110 mg/dL Chol/HDL Ratio, POC 5.6 Non-HDL Cholesterol, POC 149 mg/dL Cholesterol Total, POC 182 mg/dL Capillary blood 06/05/2021 1 :38 PM FIRE PROTECTION DESIGNER Jag Marcano MD POINT OF CARE TEST ORDER LUIS F Final Result from Last 3 Months or Most Recently Relevant to Health Maintenance Insurance [facility] IDPA MEDICARE [facility] Address: [address] [address] [place] [address] IDPA CIG[employer] OPEN ACCESS CIGNA OPEN ACCESS IDPA MEDICARE IDPA Advance Directives For more information, please contact: [phone] * Full Code (Latest Code Status on File) Date Activated Date Inactivated Comments 04/23/2023 10:59 AM 04/24/2023 8:38 PM Care Teams Talent Acquisition Project Manager Relationship Specialty Start Date End Date Miscellaneous, Not In File PCP - General 02/12/23 Jag Marcano MD [address] [facility] [address] [address] 10/21/18
--- NOTE | 2024-08-08 16:14 | ECG_ITS ---
Test Date: 2024-08-08 16:22:12 Measurements Intervals [place] Rate: 77 P: 89 [place]: 152 QRS: 53 QRSD: 96 T: 20 QT: 429 QTc: 487 Interpretive Statements SINUS RHYTHM POSSIBLE LEFT ATRIAL ENLARGEMENT [-0.1mV P WAVE IN V1/V2] ST DEVIATION AND MODERATE T-WAVE ABNORMALITY, CONSIDER LATERAL ISCHEMIA [-0.1+ mV T WAVE IN I/aVL/V5/V6] ST DEVIATION AND MODERATE T-WAVE ABNORMALITY, CONSIDER INFERIOR ISCHEMIA [-0.1+ mV T WAVE IN II/aVF] ABNORMAL ECG No previous ECG available for comparison Electronically Signed On 08-09-2024 07:15:03 CDT by Jag Bruce M.D.
--- NOTE | 2024-08-08 16:30 | ED_ITS ---
HPI - Nausea/Vomiting/Diarrhea General Chief complaint: Nausea/Vomiting/Diarrhea Stated complaint: Vomiting Diarrhea-left back pain Time Seen by Provider: 08/08/24 16:23 History of Present Illness HPI Narrative: Pt presents with vomiting and diarrhea since early this morning. Pt denies abdominal pain or fever or bloody stools. Pt says she is not able to keep anything down by mouth. Pt has pacemaker and also says she has extra wires in heart that don't work. Pt denies CP. potassium of 2.6 will treat with 40 meq po and 20 meq IV. zofran helped with nausea. pt a bit dehydrated. co2 17 so will check abg and betahydroxybuterate. discussed with Katie Sen and will admit pt. Related Data Home Medications ?Medication ?Instructions ?Recorded ?Confirmed ?Last Taken ?Type alprazolam 0.5 mg tablet 0.5 mg PO BID PRN Anxiety 01/07/23 01/07/23 Unknown History ascorbic acid (vitamin C) 500 mg 500 mg PO BID 01/07/23 01/07/23 Unknown History tablet (Vitamin C) aspirin 81 mg tablet 81 mg PO DAILY 01/07/23 01/07/23 Unknown History baclofen 10 mg tablet 10 mg PO DAILY PRN muscle spasms 01/07/23 01/07/23 Unknown History ferrous sulfate 325 mg (65 mg 325 mg PO BID 01/07/23 01/07/23 Unknown History iron) tablet (FeroSul) fosinopril 40 mg tablet 40 mg PO DAILY 01/07/23 01/20/23 01/20/23 History hydrochlorothiazide 25 mg tablet 25 mg PO DAILY 01/07/23 01/07/23 Unknown History multivit with minerals-iron 18 1 tablet PO DAILY 01/07/23 01/07/23 Unknown History mg-folic ac 400 mcg-vit K 25 mcg tablet (Adults Multivitamin) Allergies Allergy/AdvReac Type Severity Reaction Status Date / Time No Known Allergies Allergy Verified 08/08/24 16:31 Review of Systems 2 Review of Systems: All systems reviewed & are unremarkable except as noted in HPI and below PMFSH Past Medical History Medical History (Updated 08/08/24 @ 17:49 by Snehal Noel III, DO) Colon cancer screening Social History Social History Years smoked: 20 Smoking status: Current every day smoker Tobacco type: cigarettes Substance use type: does not use Living arrangements: with family Spiritual care concerns: No Exam 2 Const: General: healthy appearing and no acute distress Nutritional Appearance: well nourished Orientation/consciousness: patient oriented x3 Limitations: no limitations HENMT: Mouth: Yes moist mucous membranes Eyes: EOM: EOMs intact bilaterally Chest: Chest palpation & inspection: normal inspection of the chest Resp: Effort & Inspection: normal respiratory effort Auscultation: clear to auscultation bilaterally Cardio: Rate: regular rate Rhythm: regular rhythm GI: GI Palp: Yes Soft to palpation and No Tenderness to palpation present (GI) Auscultation: normal bowel sounds Back/Spine/Pelvis: Back: no CVA tenderness Skin: General skin exam: normal color Rashes: no rashes Wounds: no wounds Neuro: General: patient oriented x3, moves all extremities, no focal motor deficits and CN's II-XI intact bilaterally Speech: normal speech Extrem: General: normal to inspection and no clubbing, cyanosis or edema Psych: Mental Status: mental status grossly normal Affect: normal affect Attitude: cooperative Course Vital Signs Vital signs: Vital Signs Temperature 97.5 F L 08/08/24 16:16 Pulse Rate 81 08/08/24 16:16 Respiratory Rate 20 08/08/24 16:16 Blood Pressure 154/75 H 08/08/24 16:16 Pulse Oximetry 100 08/08/24 16:16 Temperature 97.5 F L 08/08/24 16:16 Pulse Rate 68 08/08/24 17:03 Respiratory Rate 16 08/08/24 17:03 Blood Pressure 166/68 H 08/08/24 17:03 Pulse Oximetry 100 08/08/24 17:03 MDM - Nausea/Vomiting/Diarrhea MDM Narrative Medical decision making narrative: Pt presents with nausea vomiting and diarrhea. unable to keep fluids down. ekg shows paced rhytm no ekg for comparison, will get labs and ua and give some iv fluids and zofran. Lab Data 08/08/24 16:38 08/08/24 16:38 Labs: Lab Results 08/08/24 08/08/24 Range/Units 16:38 17:07 WBC 12.2 H (4.5-10.0) K/mm3 RBC 4.60 (4.2-5.4) M/mm3 Hgb 15.5 H (12.0-15.0) g/dL Hct 47.0 (37.0-47.0) % MCV 102.2 H (80-100) fl MCH 33.7 (26-34) pg MCHC 33.0 (32-36) g/dl RDW 12.0 (11.5-14.5) % Plt Count 209 (150-375) k/mm3 MPV 10.3 (7.4-10.4) fl Immature Gran % (Auto) 0.4 (0-0.5) % Neut % (Auto) 88.2 H (45.5-73.1) % Lymph % (Auto) 5.7 L (18.3-44.2) % [place] % (Auto) 5.5 (2.6-8.5) % Eos % (Auto) 0.0 (0-4.4) % Baso % (Auto) 0.2 (0.2-1.2) % Lymph # (Auto) 0.70 L (0.9-3.2) K/mm3 [place] # (Auto) 0.7 H (0.1-0.6) K/mm3 Eos # (Auto) 0.0 (0-0.3) K/mm3 Baso # (Auto) 0.0 (0.0-0.1) K/mm3 Abs Immat Gran (auto) 0.05 H (0.00-0.031) K/mm3 Absolute Neuts (auto) 10.8 H (1.3-6.7) K/mm3 Absolute Nucleated RBC 0.000 (0.0-0.012) K/mm3 Nucleated RBC % 0.0 (0.0-0.2) % Sodium 139 (137-145) mmol/L Potassium 2.6 L* (3.4-5.0) mmol/L Chloride 101 (98-107) mmol/L Carbon Dioxide 17 L (22-30) mmol/L Anion Gap 21 H (4-12) mmol/L BUN 26 H (7-17) mg/dL Creatinine 1.58 H (0.7-1.0) mg/dL Estim Creat Clear Calc 27 ml/min Estimated GFR 33 L (59 - ) Glucose 213 H (65-110) mg/dL Calcium 11.0 H (8.4-10.2) mg/dL Total Bilirubin 0.8 (0.2-1.3) mg/dL AST 53 H (14-36) U/L ALT 70 H (6-35) U/L Alkaline Phosphatase 95 (38-126) U/L Troponin I 0.017 (0.000-0.034) ng/mL Total Protein 10.0 H (6.3-8.2) g/dL Albumin 6.0 H (3.5-5.1) g/dL Lipase 164 (23-300) U/L Beta-Hydroxybutyrate/Acetoacetate 0.47 H (0.02-0.27) mmol/L Urine Color Dark yellow (Yellow) Urine Appearance Cloudy H (Clear) Urine pH 5.5 (5.0-9.0) Ur Specific [place] 1.022 (1.001-1.035) Urine Protein 2+ H (Negative) mg/dL Urine Glucose (UA) Negative (Negative) mg/dL Urine Ketones Trace H (Negative) mg/dL Ur Blood (Man) 3+ H (Negative) Urine Nitrate Negative (Negative) Urine Bilirubin Negative (Negative) Urine Urobilinogen 1.0 (<2.0) mg/dL Add Ur Microanalysis Reviewed Leukocyte Esterase Rfl Trace H (Negative) JENI/UL Urine RBC 51-100 H (0-2) /hpf Urine WBC 0-5 (0-3) /hpf Ur Squamous Epith Cells None seen (Few) /hpf Urine Bacteria None seen /hpf Urine Casts 3-5 Hyaline Casts Present (None) /lpf ABG Data ABG results: 08/08/24 17:40 Puncture Site Left radial ABG pH 7.370 ABG pCO2 32.7 L ABG pO2 91.4 ABG PO2/FiO2 Ratio 4.35 ABG HCO3 18.5 L ABG O2 Saturation 96.9 ABG O2 Content 18.9 ABG Base Excess -5.8 A-a Gradient 19.2 Oxyhemoglobin 95.4 Total Hemoglobin 14.0 O2 Delivery Device Room air O2 Liters/Min Not Reportable FiO2 21 Discharge Plan Discharge Clinical Impression: Gastroenteritis, Acute hypokalemia Patient Disposition: Still a Patient Condition: Stable Patient Language: Nepali Prescriptions: No Action alprazolam 0.5 mg tablet 0.5 mg PO BID PRN (Reason: Anxiety) ascorbic acid (vitamin C) [Vitamin C] 500 mg tablet 500 mg PO BID baclofen 10 mg tablet 10 mg PO DAILY PRN (Reason: muscle spasms) ferrous sulfate [FeroSul] 325 mg (65 mg iron) tablet 325 mg PO BID fosinopril 40 mg tablet 40 mg PO DAILY Adult Low Dose Aspirin 81 mg Tablet 81 mg PO DAILY hydrochlorothiazide 25 mg tablet 25 mg PO DAILY Adults Multivitamin 18 mg iron-400 mcg-25 mcg Tablet 1 tablet PO DAILY Follow-up/Referrals: Ravindra,LISA Acosta [Primary Care Provider] -
[2024-08-08] MEDS: SODIUM CHLORIDE 0.9% IV 1,000 ML 999 ML IV CONT (16:37)
[2024-08-08] MEDS: ONDANSETRON INJ 4 MG/2 ML VIAL IV PUSH (16:38)
[2024-08-08 16:45] LABS: Basophils Percent Auto 0.2 % (0.2-1.2); Hemoglobin 15.5 g/dL (12.0-15.0); Immature Granulocyte Absolute 0.05 K/mm3 (0.00-0.031); Immature Granulocyte Percent A 0.4 % (0-0.5); Lymphocytes Percent Auto 5.7 % (18.3-44.2); Mean Corpuscular Hemoglobin 33.7 pg (26-34); Mean Corpuscular Volume 102.2 fl (80-100); Mean Platelet Volume 10.3 fl (7.4-10.4); Monocytes Absolute Auto 0.7 K/mm3 (0.1-0.6); Monocytes Percent Auto 5.5 % (2.6-8.5); Neutrophils Absolute Auto 10.8 K/mm3 (1.3-6.7); Neutrophils Percent Auto 88.2 % (45.5-73.1); Platelet Count Result 209 k/mm3 (150-375); White Blood Count 12.2 K/mm3 (4.5-10.0)
[2024-08-08 17:10] LABS: Alanine Aminotransferase 70 U/L (6-35); Alkaline Phosphatase 95 U/L (38-126); Anion Gap 21 mmol/L (4-12); Aspartate Amino Transferase 53 U/L (14-36); Bilirubin,Total 0.8 mg/dL (0.2-1.3); Blood Urea Nitrogen 26 mg/dL (7-17); Carbon Dioxide 17 mmol/L (22-30); Chloride 101 mmol/L (98-107); Estimated CRCL calculation 27 ml/min; Estimated Glomerular Filt Rate 33; Glucose 213 mg/dL (65-110); Lipase 164 U/L (23-300); Potassium 2.6 mmol/L (3.4-5.0); Sodium 139 mmol/L (137-145)
[2024-08-08 17:14] LABS: Troponin I 0.017 ng/mL (0.000-0.034)
[2024-08-08 17:25] LABS: Add Urine Microscopic? YES; Appearance Urine Cloudy (Clear); Bacteria Urine None Seen /hpf; Bilirubin Urine Negative (Negative); Blood Urine 3+ (Negative); Color Urine Dark Yellow (Yellow); Glucose Urine UA Negative (Negative); Hyaline Casts Urine Present /lpf; Ketones Urine Trace mg/dL (Negative); Leukocyte Esterase Ur Trace LEU/UL (Negative); Need Manual Microscopic Reviewed; Nitrate Urine Negative (Negative); Protein Urine 2+ mg/dL (Negative); RBC Urine 51-100 /hpf (0-2); Specific Grav Ur 1.022 (1.001-1.035); Squamous Epithelial Cell Urine None Seen /hpf (Few); WBC Urine 0-5 /hpf (0-3); pH Urine 5.5 (5.0-9.0)
[2024-08-08 17:47] LABS: Alveolar/Arterial O2 Gradient 19.2 mmHg; Base Excess ABG -5.8 mEq/l (+/-2.0); Device ROOM AIR; Fractional Inspired Oxygen 21 %; HCO3 ABG 18.5 mEq/l (22.0-26.0); Modified Allen's Test Pass; Oxygen Content ABG 18.9 %vol (16.0-22.0); Oxygen Saturation ABG 96.9 % (95.0-100.0); Oxyhemoglobin 95.4 % THb (90.0-100.0); PCO2 ABG 32.7 mmHg (35.0-45.0); PO2 ABG 91.4 mmHg (80.0-100.0); PO2 FiO2 Ratio Arterial Blood 4.35 %; Site Drawn LEFT RADIAL
--- OUTSIDE RECORDS SUMMARY | 2024-08-08 17:50 | XMS_ITS | Clinical Summary ---
Author Organization [facility] Address [address] [place] [address] Care Team Providers Care Licensed Audiologist Name Role Phone Jag Marcano MD Unavailable [phone] Miscellaneous, Not In File Primary Care Provider [...] on file Legal Sex Female 9:02 AM [employer] Gender Identity Not on file Sexual Orientation [...] 04/24/2024 04/24/2023 Medical Devices Implanted Type Area Slag Motor Operator Device Identifier Shelf Expiration Date Model / Serial / Lot [employer] Promri Solia S 60cm Lead Pacing Steroid Eluting [id number] - [id number] - [id number] Implanted:Qty: 1 on 03/11/2023 by Kaleb Bass MD at [facility] Lead Left: Heart [employer] 02/02/2025 [id number] / [id number] / [employer] Solia S 53cm Steroid Elute Bipolar Active Fixation Endocardial [id number] - [id number] - [id number] Implanted:Qty: 1 on 03/11/2023 by aKleb Bass MD at [facility] Left: Heart [employer] [id number] 02/02/2025 [id number] / [id number] / Description:Atrial lead [employer] Edora Promri 15o79k3.5mm Dual Chamber Rate Adaptive Unipolar Bipolar [id number] - [id number] - [id number] Implanted:Qty: 1 on 03/11/2023 by Kaleb Bass MD at [facility] Left: Chest [employer] [id number] 07/03/2024 [id number] / [id number] / [employer] Promri Solia S 60cm Lead Pacing Steroid Eluting [id number] - [id number] - [id number] Implanted:Qty: 1 on 04/23/2023 by Kaleb Bass MD at [facility] Left: Chest [employer] 02/02/2025 [id number] / [id number] / [employer] Od6.4 Mm Id3.4 Mm L26 Mm Sealing Adapter Cap Lead Silicone Ster 042050 - [id number] Implanted:Qty: 1 on 04/23/2023 by Kaleb Bass MD at [facility] Left: Chest [employer] 09/02/2024 [id number] / / [id number] Procedures Procedure Name Priority Date/Time Associated Diagnosis Comments EGFR STAT 04/23/2023 12:52 PM [employer] HEMOGLOBIN A1C STAT 04/23/2023 12:52 PM [employer] POCT LIPID PANEL Routine 06/05/2021 1:38 PM [employer] Mixed hyperlipidemia Type 2 diabetes mellitus without complication, without long-term current use of insulin (HCC) from Last 3 Months or Most Recently Relevant to Health Maintenance Results * eGFR (04/23/2023 12:52 PM [employer]) eGFR 97 mL/min/1. 73 m2 JOSI LEY [...] reviewed 2021. Blood 04/23/2023 12:5 2 PM [employer] 04/23/2023 1:16 PM [employer] us Vega Oliver NP LAB BLOOD ORDERABLES Final Result JOSI LEY [id number] Department [place] [address] * Hemoglobin A1c (04/23/2023 12:52 PM [employer]) Hgb A1C 5.0 4.0 - 5.6 % JOSI LEY Estimated Average Glucose 97 mg/dL JOSI LEY Comment: The ADA recommends reporting an estimated Average Glucose (eAG) with all Hemoglobin A1c results using the equation derived from a study of 507 normal and diabetic adults. Minority populations were underrepresented and children were not included. (Diabetes Care 31:0101-8501, 2008). The eAG is not equivalent to a fasting glucose. Blood 04/23/2023 12:5 2 PM [employer] 04/23/2023 1:15 PM [employer] Vega Oliver NP LAB BLOOD ORDERABLES Final Result JOSI [address] Department [place] [address] * POCT lipid panel (06/05/2021 1:38 PM [employer]) Cholesterol, POC 182 mg/dL HDL, POC 32 mg/dL Triglycerides, POC 199 mg/dL LDL Cholesterol POC 110 mg/dL Chol/HDL Ratio, POC 5.6 Non-HDL Cholesterol, POC 149 mg/dL Cholesterol Total, POC 182 mg/dL Capillary blood 06/05/2021 1 :38 PM [employer] Jag Marcano MD POINT OF CARE TEST ORDER LUIS F Final Result from Last 3 Months or Most Recently Relevant to Health Maintenance Insurance [facility] IDPA MEDICARE IDPA [facility] OPEN ACCESS [facility] OPEN ACCESS [facility] MEDICARE IDPA Advance Directives For more information, please contact: [phone] * Full Code (Latest Code Status on File) Date Activated Date Inactivated Comments 04/23/2023 10:59 AM 04/24/2023 8:38 PM Care Teams Licensed Audiologist Relationship Specialty Start Date End Date Miscellaneous, Not In File PCP - General 02/12/23 Jag Marcano MD [id number] [address] [place] [address] 10/21/18
--- OUTSIDE RECORDS SUMMARY | 2024-08-08 17:50 | XMS_ITS | CONTINUITY OF CARE DOCUMENT ---
Author Name richard ramso Address Unknown Organization [facility] Address [address] [place] [address] Phone [phone] Care Team Providers Care Drapery And Upholstery Measurer Name Role Phone Kaleb Bass MD Unavailable [phone] IMAN FLORES MD Unavailable [phone] MIRZA WANG Unavailable [phone] PROBLEMS Condition Status Date Provider Notes S/P [...] Kaleb Hare Sinus bradycardia active Azeb Ventimiglia AUDIOMETRIST Chest pain-type to be determined active Azeb Ventimiglia AUDIOMETRIST Nicotine dependence active Azeb Ventimigl ia AUDIOMETRIST Cold feet active Fernie Escamilla ENCOUNTERS Date Type Provider Location Encounter Diag nosis - In-person encounter Office Visit Kaleb Bass MD [facility] - In-person encounter Office Visit Kaleb Bass MD [facility] - In-person encounter Office Visit Kaleb Bass MD [facility] Office - In-person encounter Office Visit Kaleb Bass MD [facility] Cold feet - In-person encounter Office Visit aKleb Bass MD [facility] - In-person encounter Office Visit Kaleb Bass MD [facility] - In-person encounter Office Visit Kaleb Bass MD [facility] - In-person encounter Office Visit Kaleb Bass MD [facility] - In-person encounter Office Visit Kaleb Bass MD [facility] Sinus bradycardiaChest pain-type to be determinedNicotine dependence - In-person encounter Office Visit Kaleb Bass MD [facility] HyperlipidemiaCarotid artery disease - In-person encounter Office Visit Kaleb Bass MD [facility] Family History of Hypertension:Family History of [...] [lb_av] Lukasz y height E&M 65.4 [in_i] [facility] Body Mass Index (Ratio) 27.45 kg/m2 Amari Escamilla pulse rate 61 /min [facility] blood pressure, cuff size regular [facility] blood pressure, diastolic 62 mm[Hg] [facility] blood pressure, systolic 118 mm[Hg] [facility] respiratory rate E&M 18 /min [facility] weight E&M 167 [lb_av] [facility] height E&M 65.4 [in_i] [facility] Body Mass Index (Ratio) 27.78 kg/m2 [facility] blood pressure, cuff size regular [facility] blood pressure, diastolic 71 mm[Hg] [facility] blood pressure, systolic 134 mm[Hg] [facility] oxygen saturation, oximetry 100 % [facility] pulse rate 62 /min [facility] respiratory rate E&M 15 /min [facility] iller weight E&M 169 [lb_av] [facility] height E&M 65.4 [in_i] [facility] Body Mass Index (Ratio) 27.45 kg/m2 [facility] am [place] blood pressure, cuff size regular [...] Bass MD blood pressure, cuff size regular [facility] blood pressure, diastolic 68 mm[Hg] [facility] blood pressure, systolic 133 mm[Hg] [facility] oxygen saturation, oximetry 100 % [facility] respiratory rate E&M 16 /min [facility] pulse rate 64 /min [facility] weight E&M 161 [lb_av] [facility] height E&M 65.4 [in_i] [facility] Body Mass Index (Ratio) 27.78 kg/m2 [facility] oxygen saturation, oximetry 99 % [facility] respiratory rate E&M 16 /min [facility] pulse rate 67 /min [facility] weight E&M 169 [lb_av] [facility] height E&M 65.4 [in_i] [facility] Body Mass Index (Ratio) 27.78 kg/m2 Grah [...] once a day 04/18 - Azeb Holleymiglia AUDIOMETRIST Levemir U-100 Insulin 100 unit/mL solution completed 15 unit once a day - Azeb Houserglpaty BECERRAP ASPIRIN 81 MG ORAL TABLET active 1 tablet once a day Azebanneliese Holleymiglpaty BECERRAP hydrochlorothiazide 25 mg tablet active 1 tablet once a day Azebanneliese Holleymiglia AUDIOMETRIST fosinopril 40 mg tablet active 1 tablet once a day Azebanneliese BECERRAP fluoxetine 40 mg capsule active 1 capsule once a day Azebanneliese Holleyidsherry BECERRAP Bystolic 5 mg tablet completed 1 [...] smoking status Current every day smoker [facility] drug use no Azeb Ventimig amber AUDIOMETRIST alcohol use no Azeb Ventimig amber [facility] cigarette use yes Azeb Holleymi glia [facility] smoking status Current every day smoker Matt Houserglpaty [facility] smoking/tobacco cess ation, patient education and [...] [place] ID [place] MEDICARE Medicare [id number] [facility] Medicaid 0 [id number] ADVANCE DIRECTIVES Name Date DISCUSSED - NO DECISION MADE TREATMENT PLAN Date Name Performer [id number],S,T he Patient was reencouraged to stop smoking. Kaleb Bass MD [id number],S, Kaleb Bass MD [id number],S,continues to have sx Kaleb Bass MD [id number],S, H er updated medication list for this problem includes: Fosinopril 40 Mg Tablet (Fosinopril) ..... 1 tablet once a day Kaleb Bass MD [id number],S,P t continues to have episodes of dizzines and near syncope. 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 We will implant a permanent pacemaker Kaleb Bass MD [id number],C,cessation enc ouraged Azebanneliese Larson [facility] [id number],C,will get upda estrada lipids [facility] [id number],C,will update c arotid duplex [facility] [id number],C,p atient reports indigestion like chest pain, dizziness [...] (Fosinopril) ..... 1 tablet once a day [facility] [id number],C,R ate in 50s o n no rate lowering agents w ill plan tele monitor Azebanneliese Larson [facility] [id number],C,S he has had ongoing dizziness with fatigue. Noted more with position changes. S he had echo that showed normal EF no signficant valvular abnormalities S he is noted to be donovan rate of 50s S he will need tele monito for further evaluation O rders: 9 9204 MOD 45-59 min (CPT-37575) S tress Exercise Cardiolite (CPT-76860) M onitor - Telemetry (Mobile Cardiac) (CPT-78200) C arotid Duplex Bilateral (CPT-74372) [facility] [id number],C,B P 120/65 today well controlled The following medications were removed from the medication list: Bystolic 5 Mg Tablet (Nebivolol) ..... 1 tablet once a day Her updated medication list for this problem includes: Hydrochlorothiazide 25 Mg Tablet (Hydrochlorothiazide) ..... 1 tablet once a day Fosinopril 40 Mg Tablet (Fosinopril) ..... 1 tablet once a day Azeb Larson [facility] [id number],C,c ontrolled per patient reports last Hemoglobin A1C [...] 1 tablet once a day Azebanneliese Housersepaty [facility] Cardiology:This visi t has been a [...] (Fosinopril) ..... 1 tablet [facility] day [facility]:start cre stor 20mg H er [...] agent with crestor 20mg once daily Fernie Leland Cardiology: H er updated medication list for [...] permanent pacemaker Kaleb Bass MD Cardiology:cessation encouraged [place] [employer] [facility] Cardiology:will get updated lipi ds [facility] Cardiology:will update carotid d uplex [facility] Cardiology:patient r eports indigestion like chest [...] (Fosinopril) ..... 1 tablet once a day [facility] Cardiology:Rate in 5 0s o n no rate lowering agents w ill plan tele monitor [facility] Cardiology:She has h ad ongoing dizziness with fatigue. Noted more with position changes. S he had echo that showed normal EF no signficant valvular abnormalities S he is noted to be donovan rate of 50s S he will need tele monito for further evaluation O rders: 9 9204 MOD 45-59 min (CPT-72024) S tress Exercise Cardiolite (CPT-83350) M onitor - Telemetry (Mobile Cardiac) (CPT-88504) C arotid Duplex Bilateral (CPT-67317) [facility] Cardiology:BP 120/65 today well controlled The following medications were removed from the medication list: Bystolic 5 Mg Tablet (Nebivolol) ..... 1 tablet once a day Her updated medication list for this problem includes: Hydrochlorothiazide 25 Mg Tablet (Hydrochlorothiazide) ..... 1 tablet once a day Fosinopril 40 Mg Tablet (Fosinopril) ..... 1 tablet once a day Aezb Larson [facility] Cardiology:controlle d per patient reports last [...] 1 tablet once a day Azeb Larson [facility] Date Name LIPID PANEL X-Ray, Chest [...]
--- OUTSIDE RECORDS SUMMARY | 2024-08-08 17:50 | XMS_ITS | Referral Summary ---
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 Gender Identity Not on file Sexual [...] on file Medical Devices Implanted Type Area Cable Technician Device Identifier Shelf Expiration Date Model / Serial / Lot [employer] Promri Solia S 60cm Lead Pacing Steroid Eluting 779053 - [id number] - [id number] Implanted:Qty: 1 on 03/11/2023 by Kaleb Bass MD at [facility] Lead Left: Heart [employer] 02/02/2025 [id number] / [id number] / [employer] Solia S 53cm Steroid Elute Bipolar Active Fixation Endocardial [id number] - [id number] - [id number] Implanted:Qty: 1 on 03/11/2023 by Kaleb Bass MD at [facility] Left: Heart [employer] [id number] 02/02/2025 [id number] / [id number] / Description:Atrial lead [employer] Edora Promri 26b26b9.5mm Dual Chamber Rate Adaptive Unipolar Bipolar 917300 - [id number] - [id number] Implanted:Qty: 1 on 03/11/2023 by Kaleb Bass MD at [facility] Left: Chest [employer] [id number] 07/03/2024 [id number] / [id number] / [employer] Promri Solia S 60cm Lead Pacing Steroid Eluting 092842 - [id number] - [id number] Implanted:Qty: 1 on 04/23/2023 by Kaleb Bass MD at [facility] Left: Chest [employer] 02/02/2025 573254 / [id number] / [employer] Od6.4 Mm Id3.4 Mm L26 Mm Sealing Adapter Cap Lead Silicone Ster 578830 - [id number] Implanted:Qty: 1 on 04/23/2023 by Kaelb Bass MD at [facility] Left: Chest [employer] 09/02/2024 [id number] / / [id number] Procedures Procedure Name Priority Date/Time Associated Diagnosis Comments EGFR STAT 04/23/2023 12:52 PM DAIRY FEED MIXING OPERATOR HEMOGLOBIN A1C STAT 04/23/2023 12:52 PM DAIRY FEED MIXING OPERATOR POCT LIPID PANEL Routine 06/05/2021 1:38 PM DAIRY FEED MIXING OPERATOR Mixed hyperlipidemia Type 2 diabetes mellitus without complication, without long-term current use of insulin ([facility]) from Last 3 Months or Most Recently Relevant to Health Maintenance Results * eGFR (04/23/2023 12:52 PM DAIRY FEED MIXING OPERATOR) Pathologist [facility] eGFR 97 mL/min/1. 73 m2 JOSI LEY [...] reviewed 2021. Blood 04/23/2023 12:5 2 PM DAIRY FEED MIXING OPERATOR 04/23/2023 1:16 PM DAIRY FEED MIXING OPERATOR Vega Oliver PEST CONTROL CHEMICAL TECHNICIAN LAB BLOOD ORDERABLES Final Result Performing Organization Address [facility] Co de Phone Number GALILEASHANTA LEY [address] [place] [address] * Hemoglobin A1c (04/23/2023 12:52 PM DAIRY FEED MIXING OPERATOR) Hgb A1C 5.0 4.0 - 5.6 % JOSI LEY Estimated Average Glucose 97 mg/dL JOSI Comment: The ADA recommends reporting an estimated Average Glucose (eAG) with all Hemoglobin A1c results using the equation derived from a study of 507 normal and diabetic adults. Minority populations were underrepresented and children were not included. (Diabetes Care 31:9443-7348, 2008). The eAG is not equivalent to a fasting glucose. Blood 04/23/2023 12:5 2 PM DAIRY FEED MIXING OPERATOR 04/23/2023 1:15 PM DAIRY FEED MIXING OPERATOR Vega Oliver NP LAB BLOOD ORDERABLES Final Result Performing Organization Address City/[facility]/ZIP Co de Phone Number JOSI LEY [address] [place] [address] * POCT lipid panel (06/05/2021 1:38 PM DAIRY FEED MIXING OPERATOR) Cholesterol, POC 182 mg/dL HDL, POC 32 mg/dL Triglycerides, POC 199 mg/dL LDL Cholesterol POC 110 mg/dL Chol/HDL Ratio, POC 5.6 Non-HDL Cholesterol, POC 149 mg/dL Cholesterol Total, POC 182 mg/dL Capillary blood 06/05/2021 1 :38 PM DAIRY FEED MIXING OPERATOR Jag Marcano MD POINT OF CARE TEST ORDER LUIS F Final Result from Last 3 Months or Most Recently Relevant to Health Maintenance Insurance [facility] OTHER Address: ATTN: CLAIMS DEPT [address] [place] [address] IDPA MEDICARE IDPA CIGNA OPEN ACCESS CIGNA OPEN ACCESS IDPA MEDICARE IDPA Advance Directives For more information, please contact: [phone] * Full Code (Latest Code Status on File) Date Activated Date Inactivated Comments 04/23/2023 10:59 AM 04/24/2023 8:38 PM Care Teams Draw Tender Relationship Specialty Start Date End Date Miscellaneous, Not In File PCP - General 02/12/23 Jag Marcano MD [address] [facility] [address], [place] [address] 10/21/18
--- OUTSIDE RECORDS SUMMARY | 2024-08-08 17:50 | XMS_ITS | Clinical Summary ---
Author Organization [facility] Address [address] [place] [id number] Care Team Providers Care Senior Director Name Role Phone Unavailable Primary Care Provider [...]
--- OUTSIDE RECORDS SUMMARY | 2024-08-08 17:50 | XMS_ITS | Encounter Summary ---
Author Organization [facility] Address [address] [place] [address] Care Team Providers Care Retail Field Supervisor Name Role Phone Jag Marcano MD Primary Care Provider + Jag Marcano MD Primary Care Provider + Jag Mracano MD Unavailable Miscellaneous, Not In File Primary Care Provider Unavailable Encounter Details Date Type Department Care Team (Late st Contact Info) Description 09/20/2017 Community Orders [facility] EpicCare Link Jag Marcano MD [address] [place], [place] [id number] Shoulder arthritis (Primary Dx); Cervical arthritis ([facility]) Social History Tobacco Use Types Packs/Day Years Used Date Smoking Tobacco: Former Comments Unknown Sex and Gender Information Value Date Recorded Sex Assigned at Not on file 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 Gender Identity Not on file Sexual Orientation Not on file documented as of this encounter Plan of Treatment Not on file documented as of this encounter Visit Diagnoses Diagnosis Shoulder arthritis- Primary Unspecified arthropathy, shoulder region Cervical arthritis Cervical spondylosis without myelopathy documented in this encounter Care Teams Retail Field Supervisor Relationship Specialty Start Date End Date Jag Marcano MD [address] [place], [place] [id number] PCP - General 05/25/16 10/20/18 Jag Marcano MD [address] [facility] [address] [id number] PCP - General 10/21/18 02/11/23 Miscellaneous, Not In File PCP - General 02/12/23 Jag Marcano MD [address] [facility] [address], [place] [address] 10/21/18 documented as of this encounter
[2024-08-08 18:13] LABS: Beta-Hydroxybutyrate/Acetoacetate 0.47 mmol/L (0.02-0.27)
[2024-08-08] MEDS: KCL 20 MEQ/D5/0.45% SOD CHL 1,000 ML 125 ML IV CONT (18:14)
[2024-08-08] MEDS: POTASSIUM CHLORIDE 20 MEQ ER TABLET 40 MEQ PO (18:39)
--- NOTE | 2024-08-08 19:00 | ADMGEN ---
This patient, Flor Garcia, was admitted to Medical Room 261-01. Patient/family oriented to hospital policies and general routines including ID bracelet, bed and alarms, visiting hours, pain management, procedures, bathroom and other care routines, personal items, smoking policy, room service/diet, and visiting hours. Information on how to activate the Rapid Response Team has been discussed. Patient/Family are encouraged to report perceived risks to care and to ask questions if they do not understand what they are told or what they should do.
--- NOTE | 2024-08-08 19:56 | P.HP_ITS ---
H&P: HPI History of Present Illness Date/Time: 08/08/24 19:56 Chief Complaint: Nausea vomiting diarrhea Narrative: This very pleasant 64-year-old female patient who does not appear to be a good historian regarding her will history comes to the emergency room with complaints having acute onset nausea vomiting diarrhea this morning. Patient states she had some looser stool starting on Wednesday, now 4 days ago and that she has recently been exposed to her daughter have had nausea vomiting and diarrhea over the weekend. Patient states abruptly at 1:00 a.m. this morning she started having nausea and vomiting. She did not have any fevers. She has not eaten any known bad food that she has not had any recent travel. Patient denies any melanous appearing stools, hematochezia or hematemesis. She denies any chest pain, dyspnea. Patient started to feel weak and therefore presented to the emergency room today for evaluation. She is an everyday smoker and denies any to partake of alcohol or drugs. Based upon her review of medications it appears the patient has a history of chronic back pain, hyperlipidemia, diabetes mellitus and hypertension. Patient last had a colonoscopy in 2022 that showed diverticula at that time without any inflammation or bleeding. An AVM was noted. In the emergency room workup was performed that shows stable vital signs, a paced rhythm EKG, normal pH on VBG is 7.37 with pCO2 of 32.7, PO2 of 91.4 and bicarb of 18.5. She has an unremarkable CBC and metabolic panel is remarkable for a potassium of 2.6. She has a mild bump in creatinine 1.58 but baseline is unknown. Chest x-ray performed in ED was negative. Patient being admitted in the current setting for treatment of her hypokalemia and presumed gastroenteritis. Review of Systems Review of Systems: All systems reviewed & are unremarkable except as noted in HPI and below PMFSH Past Medical History Medical History (Updated 08/08/24 @ 20:10 by DEANDRE Vazquez) Diabetes mellitus Hyperlipidemia Hypertension Chronic back pain Nausea vomiting and diarrhea Colon cancer screening Family History Family History Father Heart disease Parents Mother Heart disease Parents Social History Social History Years smoked: 20 Smoking status: Former smoker Tobacco type: cigarettes Alcohol intake: never Substance use: never Substance use type: does not use Do You Feel Safe in your Home?: Yes Lack of Transportation: No Lack of Food: Never True Current Housing: I Have Housing Concerned About Future Housing: No Difficulty Paying Gas/Electric Bills: No Difficulty Paying for Meds: No Currently Unemployed: No Education: Trade/Vocational Certificate Difficulty w/ Childcare or Family Care: No Living arrangements: with family Spiritual care concerns: No Meds Home Medications and Allergies Home Medications ?Medication ?Instructions ?Recorded ?Confirmed ?Type ascorbic acid (vitamin C) 500 mg 500 mg PO BID 01/07/23 08/08/24 History tablet (Vitamin C) aspirin 81 mg tablet 81 mg PO DAILY 01/07/23 08/08/24 History baclofen 10 mg tablet 10 mg PO DAILY PRN muscle spasms 01/07/23 08/08/24 History ferrous sulfate 325 mg (65 mg 325 mg PO BID 01/07/23 08/08/24 History iron) tablet (FeroSul) fosinopril 40 mg tablet 40 mg PO DAILY 01/07/23 08/08/24 History hydrochlorothiazide 25 mg tablet 25 mg PO DAILY 01/07/23 08/08/24 History dulaglutide 3 mg/0.5 mL 3 mg subcut WEEKLY 08/08/24 08/08/24 History subcutaneous pen injector (Trulicity) fluconazole 150 mg tablet 150 mg PO WEEKLY 08/08/24 08/08/24 History potassium chloride 20 mEq 20 meq PO DAILY 08/08/24 08/08/24 History tablet,extended release(part/cryst) rosuvastatin 20 mg tablet 20 mg PO HS 08/08/24 08/08/24 History Allergies Allergy/AdvReac Type Severity Reaction Status Date / Time No Known Allergies Allergy Verified 08/08/24 16:31 Vital Signs Vital Signs - 24 hr 08/08/24 16:16 08/08/24 17:03 08/08/24 18:38 Temperature 97.5 F L Pulse Rate 81 68 62 Respiratory Rate 20 16 99 H Blood Pressure 154/75 H 166/68 H 135/67 Pulse Oximetry 100 100 18 L 08/08/24 18:49 08/08/24 19:01 Temperature 97.7 F Pulse Rate 73 69 Respiratory Rate 20 20 Blood Pressure 148/64 H 160/59 H Pulse Oximetry 100 100 Exam Const: General: comfortable and no acute distress Other: Lying on stretcher in no acute distress. HENMT: Face/Nose/Sinus: Normal nares present and no epistaxis Mouth: Yes dry mucous membranes Eyes: General: appearance normal, both eyes and all related structures Sclera: sclerae normal Pupils: Equal, round and reactive pupils present Neck: Neck: supple and no JVD Chest: Other: Nontender to palpation Resp: Effort & Inspection: normal respiratory effort Auscultation: clear to auscultation bilaterally Cardio: Rate: regular rate, not bradycardic and not tachycardic Rhythm: regular rhythm Heart sounds: no gallops, no murmurs and no rubs GI: Inspection: non-distended GI Palp: Yes Soft to palpation and No Tenderness to palpation present (GI) (Patient denies tenderness with palpation.) Auscultation: normal bowel sounds Skin: General skin exam: normal color, rashes and/or lesions noted and no erythema Lesions: no lesions noted Rashes: no rashes noted Wounds: no wounds Neuro: General: gait normal Speech: normal speech Motor exam (neuro): 5/ 5 motor strength present throughout and Normal motor muscle tone present throughout Sensory Exam: normal sensation Extrem: Other: Patient feeling equally moves all extremities well. Psych: Mental Status: mental status grossly normal Affect: normal affect H&P: Results Labs Labs: Short CBC 08/08/24 Range/Units 16:38 WBC 12.2 H (4.5-10.0) K/mm3 Hgb 15.5 H (12.0-15.0) g/dL Hct 47.0 (37.0-47.0) % Plt Count 209 (150-375) k/mm3 BMP 08/08/24 16:38 Sodium 139 Potassium 2.6 L* Chloride 101 Carbon Dioxide 17 L BUN 26 H Creatinine 1.58 H Glucose 213 H Calcium 11.0 H Cardiac Enzymes 08/08/24 Range/Units 16:38 Troponin I 0.017 (0.000-0.034) ng/mL Liver Function 08/08/24 Range/Units 16:38 Total Bilirubin 0.8 (0.2-1.3) mg/dL AST 53 H (14-36) U/L ALT 70 H (6-35) U/L Alkaline Phosphatase 95 (38-126) U/L Albumin 6.0 H (3.5-5.1) g/dL Urine 08/08/24 Range/Units 17:07 Urine Color Dark yellow (Yellow) Urine Appearance Cloudy H (Clear) Urine pH 5.5 (5.0-9.0) Ur Specific [place] 1.022 (1.001-1.035) Urine Protein 2+ H (Negative) mg/dL Urine Glucose (UA) Negative (Negative) mg/dL Assessment and Plan Assessment and plan (1) Acute hypokalemia: Code(s): E87.6 - Hypokalemia Status: Acute Assessment and Plan: * As evidenced by potassium of 2.6 secondary to nausea vomiting diarrhea. * You are administered p.o. potassium at 40 mEq. K rider 40 mEq ordered * Monitor and trend labs and vital signs * Telemetry (2) Nausea vomiting and diarrhea: Code(s): R11.2 - Nausea with vomiting, unspecified; R19.7 - Diarrhea, unspecified Status: Acute Assessment and Plan: * Gastroenteritis versus other acute infectious cause. * CT abdomen pelvis with contrast ordered to rule out diverticulitis. * Deferring any start of antibiotics as higher suspicion of viral cause as patient has been exposed to family with similar symptoms. * Continue IV fluid hydration with normal saline at 125 mL/hour. * Monitor trend labs and vital signs * Antiemetics * Pain meds (3) Chronic back pain: Code(s): M54.9 - Dorsalgia, unspecified; G89.29 - Other chronic pain Status: Chronic Assessment and Plan: * Chronic back pain * Continue baclofen 10 mg daily * Tylenol ordered for mild pain * Tramadol ordered for moderate pain * Adams ordered for severe pain (4) Hypertension: Code(s): I10 - Essential (primary) hypertension Status: Chronic Assessment and Plan: * Continue home medications hydrochlorothiazide 25 mg daily with supplemental potassium 20 mEq daily * Monitor and trend vitals (5) Hyperlipidemia: Code(s): E78.5 - Hyperlipidemia, unspecified Status: Chronic Assessment and Plan: * Continue statin therapy with Crestor 20 mg HS * Heart healthy diet (6) Diabetes mellitus: Code(s): E11.9 - Type 2 diabetes mellitus without complications Status: Chronic Assessment and Plan: * Continue Trulicity * Accu-Cheks a.c. and HS * Hypoglycemic protocol * Check A1c Quality VTE Prophylaxis VTE prophylaxis: pharmacologic ordered Hospitalist MIPS Advance Care Plan I have confirmed that the patient's Advanced Care Plan is present, code status is documented, or surrogate decision maker is listed in patient medical record.: Yes Medication Reconciliation I have utilized all available resources to obtain, update and review the patients current medications (includes all prescriptions, OTC, herbals, cannabis, and nutritional supplements).: Yes
[2024-08-08] MEDS: SODIUM CHLORIDE 0.9% IV 1,000 ML 125 ML IV CONT (20:29)
[2024-08-08] MEDS: POTASSIUM CHLORIDE INJ 40 MEQ in SODIUM CHLORIDE 0.9% IV 500 ML 130 MEQ IVPB (20:29)
[2024-08-08] MEDS: ROSUVASTATIN 20 MG TABLET PO (20:32)
[2024-08-08] MEDS: HYDROcodone/acetaminophen (*CRX) 5-325 MG TABLET 1 TAB PO (20:32)
[2024-08-08 20:55] LABS: Glucose Point of Care 191 mg/dl (65-105)
[2024-08-08 21:06] LABS: Hemoglobin A1C 5.2 % (<5.7)
--- NOTE | 2024-08-08 21:42 | PC.NURSE ---
PT TAKEN DOWN TO CT IN WHEELCHAIR
[2024-08-09] VITALS (10 sets, daily range): BP systolic 94–120; BP diastolic 42–48; PULSE 50–69; RESP 18–20; TEMP 36.4–36.8; O2SAT 95–100
[2024-08-09 06:18] LABS: Basophils Percent Auto 0.2 % (0.2-1.2); Eosinophils Percent Auto 0.2 % (0-4.4); Hematocrit 33.9 % (37.0-47.0); Hemoglobin 11.2 g/dL (12.0-15.0); Immature Granulocyte Absolute 0.02 K/mm3 (0.00-0.031); Immature Granulocyte Percent A 0.3 % (0-0.5); Lymphocytes Percent Auto 13.7 % (18.3-44.2); Mean Corpuscular Hemoglobin 33.9 pg (26-34); Mean Corpuscular Volume 102.7 fl (80-100); Mean Platelet Volume 10.4 fl (7.4-10.4); Monocytes Absolute Auto 0.8 K/mm3 (0.1-0.6); Monocytes Percent Auto 13.7 % (2.6-8.5); Neutrophils Absolute Auto 4.2 K/mm3 (1.3-6.7); Neutrophils Percent Auto 71.9 % (45.5-73.1); Platelet Count Result 139 k/mm3 (150-375); White Blood Count 5.8 K/mm3 (4.5-10.0)
[2024-08-09 06:30] LABS: Alanine Aminotransferase 38 U/L (6-35); Alkaline Phosphatase 58 U/L (38-126); Anion Gap 8 mmol/L (4-12); Aspartate Amino Transferase 36 U/L (14-36); Bilirubin,Total 0.6 mg/dL (0.2-1.3); Blood Urea Nitrogen 29 mg/dL (7-17); Calcium 8.8 mg/dL (8.4-10.2); Carbon Dioxide 18 mmol/L (22-30); Chloride 110 mmol/L (98-107); Estimated CRCL calculation 41 ml/min; Estimated Glomerular Filt Rate 53; Glucose 128 mg/dL (65-110); Magnesium 1.5 mg/dL (1.6-2.3); Potassium 3.3 mmol/L (3.4-5.0); Sodium 136 mmol/L (137-145)
[2024-08-09 08:03] LABS: Glucose Point of Care 121 mg/dl (65-105)
[2024-08-09] MEDS: POTASSIUM CHLORIDE 20 MEQ ER TABLET PO (10:02)
[2024-08-09] MEDS: FERROUS SULFATE 325 MG TABLET DR BY MOUTH ×2 (10:02→18:01)
[2024-08-09] MEDS: MAGNESIUM OXIDE 400 MG TABLET PO (10:02)
[2024-08-09] MEDS: lisinopriL 20 MG TABLET 40 MG PO (10:02)
[2024-08-09] MEDS: SODIUM CHLORIDE 0.9% IV 1,000 ML 125 ML IV CONT ×2 (10:03→20:01)
[2024-08-09] MEDS: ASPIRIN 81 MG ENTERIC TABLET PO (10:03)
[2024-08-09] MEDS: ASCORBIC ACID 500 MG TABLET PO ×2 (10:03→18:01)
[2024-08-09] MEDS: hydroCHLOROthiazide 25 MG TABLET PO (10:03)
[2024-08-09] MEDS: ENOXAPARIN 40 MG/0.4 ML SYRINGE SUB-Q (10:03)
[2024-08-09] MEDS: ACETAMINOPHEN 500 MG TABLET 1000 MG PO (10:06)
[2024-08-09 11:21] LABS: Glucose Point of Care 109 mg/dl (65-105)
--- NOTE | 2024-08-09 12:43 | P.PNIM_ITS ---
Progress Note: A&P Assessment and Plan (1) Acute hypokalemia: Code(s): E87.6 - Hypokalemia Status: Acute Assessment and Plan: * As evidenced by potassium of 2.6 secondary to nausea vomiting diarrhea. * You are administered p.o. potassium at 40 mEq. K rider 40 mEq ordered * Monitor and trend labs and vital signs * Telemetry * continue daily replacement * mg 1.5- added supplements (2) Nausea vomiting and diarrhea: Code(s): R11.2 - Nausea with vomiting, unspecified; R19.7 - Diarrhea, unspecified Status: Acute Assessment and Plan: * Gastroenteritis versus other acute infectious cause. * CT abdomen pelvis with contrast ordered to rule out diverticulitis. * Deferring any start of antibiotics as higher suspicion of viral cause as patient has been exposed to family with similar symptoms. * Continue IV fluid hydration with normal saline at 125 mL/hour. * Monitor trend labs and vital signs * Antiemetics * Pain meds (3) Chronic back pain: Code(s): M54.9 - Dorsalgia, unspecified; G89.29 - Other chronic pain Status: Chronic Assessment and Plan: * Chronic back pain * Continue baclofen 10 mg daily * Tylenol ordered for mild pain * Tramadol ordered for moderate pain * [place] ordered for severe pain (4) Hypertension: Code(s): I10 - Essential (primary) hypertension Status: Chronic Assessment and Plan: * Continue home medications hydrochlorothiazide 25 mg daily with supplemental potassium 20 mEq daily * Monitor and trend vitals (5) Hyperlipidemia: Code(s): E78.5 - Hyperlipidemia, unspecified Status: Chronic Assessment and Plan: * Continue statin therapy with Crestor 20 mg HS * Heart healthy diet (6) Diabetes mellitus: Code(s): E11.9 - Type 2 diabetes mellitus without complications Status: Chronic Assessment and Plan: * Continue Trulicity * Accu-Cheks a.c. and HS * Hypoglycemic protocol * Check A1c Plan Anticipate discharge in the next day or two if stable/continues to improve Time Spent With Patient Time with patient: 25 - 35 minutes Subjective Date/time seen: 08/09/24 12:43 Interval history: 64-year-old female patient admitted for acute onset nausea vomiting diarrhea this morning. Patient states she had some looser stool starting on Wednesday and yesterday, 5/6 she started having nausea and vomiting. She did not have any fevers. She has not eaten any known bad food that she has not had any recent travel. Patient denies any melanous appearing stools, hematochezia or hematemesis. She denies any chest pain, dyspnea. Patient started to feel weak and therefore presented to the emergency room today for evaluation. Based upon her review of medications it appears the patient has a history of chronic back pain, hyperlipidemia, diabetes mellitus and hypertension. Patient last had a colonoscopy in 2022 that showed diverticula at that time without any inflammation or bleeding. An AVM was noted. In the emergency room workup was performed that shows stable vital signs, a paced rhythm EKG, normal pH on VBG is 7.37 with pCO2 of 32.7, PO2 of 91.4 and bicarb of 18.5. She has an unremarkable CBC and metabolic panel is remarkable for a potassium of 2.6. She has a mild bump in creatinine 1.58 but baseline is unknown. Chest x-ray performed in ED was negative. Pt is seen and examined. Stool studies ordered-pending. She is still having diarrhea but it is improved. some nausea but no vomiting. Review of Systems Review of Systems: All systems reviewed & are unremarkable except as noted in HPI and below Exam Const: General: comfortable and no acute distress Other: Lying on stretcher in no acute distress. HENMT: Face/Nose/Sinus: Normal nares present and no epistaxis Mouth: Yes dry mucous membranes Eyes: General: appearance normal, both eyes and all related structures Sclera: sclerae normal Pupils: Equal, round and reactive pupils present Neck: Neck: supple and no JVD Chest: Other: Nontender to palpation Resp: Effort & Inspection: normal respiratory effort Auscultation: clear to auscultation bilaterally Cardio: Rate: regular rate, not bradycardic and not tachycardic Rhythm: regular rhythm Heart sounds: no gallops, no murmurs and no rubs GI: Inspection: non-distended Auscultation: normal bowel sounds Skin: General skin exam: normal color, rashes and/or lesions noted, no erythema, No lesion and No rashes Lesions: no lesions noted Rashes: no rashes noted Wounds: no wounds Neuro: General: gait normal Cranial nerves: Yes Equal, round and reactive pupils present Speech: normal speech Motor exam (neuro): 5/5 motor strength present throughout and Normal motor muscle tone present throughout Sensory Exam: normal sensation Extrem: Other: Patient feeling equally moves all extremities well. Psych: Mental Status: mental status grossly normal Affect: normal affect Objective Data Vital Signs Vital Signs: Vital Signs - 24 hr 08/08/24 16:16 08/08/24 17:03 08/08/24 18:38 Temperature 97.5 F L Pulse Rate 81 68 62 Respiratory Rate 20 16 99 H Blood Pressure 154/75 H 166/68 H 135/67 Pulse Oximetry 100 100 18 L Oxygen Delivery 08/08/24 18:49 08/08/24 19:01 08/08/24 20:00 Temperature 97.7 F Pulse Rate 73 69 Respiratory Rate 20 20 Blood Pressure 148/64 H 160/59 H Pulse Oximetry 100 100 Oxygen Delivery Room Air 08/08/24 20:00 08/08/24 20:40 08/08/24 22:30 Temperature 98.2 F Pulse Rate 64 63 Respiratory Rate 18 Blood Pressure 130/48 L Pulse Oximetry 100 Oxygen Delivery CPAP 08/09/24 00:00 08/09/24 03:54 08/09/24 04:00 Temperature 98.2 F Pulse Rate 67 64 62 Respiratory Rate 18 Blood Pressure 120/48 L Pulse Oximetry 98 Oxygen Delivery 08/09/24 08:00 Temperature Pulse Rate 69 Respiratory Rate Blood Pressure Pulse Oximetry Oxygen Delivery Intake/Output Intake/Output: Intake & Output 08/06/24 08/07/24 08/08/24 08/09/24 23:59 23:59 23:59 23:59 Intake Total 1000 1630 Output Total 25 Balance 975 1630 Meds/Results Medications: Active Medications Generic Name Dose Route Start Last Admin Trade Name Freq PRN Reason Stop Dose Admin Acetaminophen 1,000 mg 08/08/24 19:55 08/09/24 10:06 Acetaminophen 500 Mg Tablet PO 1,000 mg Q6H PRN Administration Mild Pain (1-3) or Fever Hydrocodone Bitart/Acetaminophen 1 tab 08/08/24 19:55 08/08/24 20:32 Hydrocodone/Acetaminophen (*Crx) 5-325 Mg Tablet PO 1 tab Q6H PRN Administration Pain Rated 7-10 Ascorbic Acid 500 mg 08/09/24 09:00 08/09/24 10:03 Ascorbic Acid 500 Mg Tablet PO 500 mg BID YOSI Administration Aspirin 81 mg 08/09/24 09:00 08/09/24 10:03 Aspirin 81 Mg Enteric Tablet PO 81 mg QAM YOSI Administration Baclofen 10 mg 08/08/24 19:54 Baclofen 10 Mg Tablet PO DAILY PRN muscle spasms Dextrose 12.5 gm 08/08/24 20:10 Dextrose 50% 25 Gm/50 Ml Syringe IV PUSH PRN PRN Hypoglycemia Protocol Enoxaparin Sodium 40 mg 08/09/24 09:00 08/09/24 10:03 Enoxaparin 40 Mg/0.4 Ml Syringe SUB-Q 40 mg DAILY YOSI Administration Ferrous Sulfate 325 mg 08/09/24 09:00 08/09/24 10:02 Ferrous Sulfate [address] BY MOUTH 325 mg BID YOSI Administration Fluconazole 150 mg 08/10/24 09:00 Fluconazole 150 Mg Tablet PO WEEKLY YOSI Glucagon 1 mg 08/08/24 20:10 Glucagon For Inj 1 Mg Vial IM PRN PRN Hypoglycemia Protocol Glucose 15 gm 08/08/24 20:10 Glucose Oral Gel 15 Gm Of Glucse In 37.5 Gm Tube PO PRN PRN Hypoglycemia Protocol Hydrochlorothiazide 25 mg 08/09/24 09:00 08/09/24 10:03 Hydrochlorothiazide 25 Mg Tablet PO 25 mg DAILY YOSI Administration Sodium Chloride 1,000 mls @ 125 mls/hr 08/08/24 17:50 08/09/24 10:03 Normal Saline Iv IV CONT 125 mls/hr .Q8H YOSI Administration Dextrose 1,000 mls @ 100 mls/hr 08/08/24 20:10 Dextrose 5% 1,000 Ml IVPB PRN PRN Hypoglycemia Protocol Lisinopril 40 mg 08/09/24 09:00 08/09/24 10:02 Lisinopril 20 Mg Tablet PO 40 mg QAM YOSI Administration Magnesium Oxide 400 mg 08/09/24 09:00 08/09/24 10:02 Magnesium Oxide 400 Mg Tablet PO 400 mg DAILY YOSI Administration Ondansetron HCl 4 mg 08/08/24 17:49 Ondansetron Inj 4 Mg/2 Ml Vial IV PUSH Q4H PRN Nausea Potassium Chloride 20 meq 08/09/24 09:00 08/09/24 10:02 Potassium Chloride 20 Meq Er Tablet PO 20 meq DAILY YOSI Administration Rosuvastatin Calcium 20 mg 08/08/24 21:00 08/08/24 20:32 Rosuvastatin 20 Mg Tablet PO 20 mg HS YOSI Administration Tramadol HCl 50 mg 08/08/24 19:55 Tramadol Hcl (*Crx) 50 Mg Tablet PO Q6H PRN Pain Rated 4-6 Radiology Results: ITS Impressions Chest X-Ray 08/08/24 16:56 IMPRESSION: No acute cardiopulmonary pathology. Abdomen/Pelvis CT 08/08/24 22:36 IMPRESSION: Multiple loops of minimally dilated fluid-filled small and large bowel, consistent with patient's history. No additional acute or subacute pathology identified. Labs Labs: Laboratory Results - last 24 hr 08/08/24 08/08/24 08/08/24 16:38 17:07 17:40 WBC 12.2 H RBC 4.60 Hgb 15.5 H Hct 47.0 MCV 102.2 H MCH 33.7 MCHC 33.0 RDW 12.0 Plt Count 209 MPV 10.3 Immature Gran % (Auto) 0.4 Neut % (Auto) 88.2 H Lymph % (Auto) 5.7 L [place] % (Auto) 5.5 Eos % (Auto) 0.0 Baso % (Auto) 0.2 Lymph # (Auto) 0.70 L [place] # (Auto) 0.7 H Eos # (Auto) 0.0 Baso # (Auto) 0.0 Abs Immat Gran (auto) 0.05 H Absolute Neuts (auto) 10.8 H Absolute Nucleated RBC 0.000 Nucleated RBC % 0.0 % Immature Plt Fraction Puncture Site Left radial ABG pH 7.370 ABG pCO2 32.7 L ABG pO2 91.4 ABG PO2/FiO2 Ratio 4.35 ABG HCO3 18.5 L ABG O2 Saturation 96.9 ABG O2 Content 18.9 ABG Base Excess -5.8 A-a Gradient 19.2 Oxyhemoglobin 95.4 Total Hemoglobin 14.0 O2 Delivery Device Room air O2 Liters/Min Not Reportable FiO2 21 Sodium 139 Potassium 2.6 L* Chloride 101 Carbon Dioxide 17 L Anion Gap 21 H BUN 26 H Creatinine 1.58 H Estim Creat Clear Calc 27 Estimated GFR 33 L Glucose 213 H POC Capillary Glucose Hemoglobin A1c 5.2 Calcium 11.0 H Magnesium Total Bilirubin 0.8 AST 53 H ALT 70 H Alkaline Phosphatase 95 Troponin I 0.017 Total Protein 10.0 H Albumin 6.0 H Lipase 164 Beta-Hydroxybutyrate/Acetoacetate 0.47 H Urine Color Dark yellow Urine Appearance Cloudy H Urine pH 5.5 Ur Specific [place] 1.022 Urine Protein 2+ H Urine Glucose (UA) Negative Urine Ketones Trace H Ur Blood (Man) 3+ H Urine Nitrate Negative Urine Bilirubin Negative Urine Urobilinogen 1.0 Add Ur Microanalysis Reviewed Leukocyte Esterase Rfl Trace H Urine RBC 51-100 H Urine WBC 0-5 Ur Squamous Epith Cells None seen Urine Bacteria None seen Urine Casts 3-5 Hyaline Casts Present 08/08/24 08/09/24 08/09/24 20:43 05:24 08:01 WBC 5.8 RBC 3.30 L Hgb 11.2 L D Hct 33.9 L MCV 102.7 H MCH 33.9 MCHC 33.0 RDW 12.0 Plt Count 139 L MPV 10.4 Immature Gran % (Auto) 0.3 Neut % (Auto) 71.9 Lymph % (Auto) 13.7 L [place] % (Auto) 13.7 H Eos % (Auto) 0.2 Baso % (Auto) 0.2 Lymph # (Auto) 0.80 L [place] # (Auto) 0.8 H Eos # (Auto) 0.0 Baso # (Auto) 0.0 Abs Immat Gran (auto) 0.02 Absolute Neuts (auto) 4.2 Absolute Nucleated RBC 0.000 Nucleated RBC % 0.0 % Immature Plt Fraction 3.0 Puncture Site ABG pH ABG pCO2 ABG pO2 ABG PO2/FiO2 Ratio ABG HCO3 ABG O2 Saturation ABG O2 Content ABG Base Excess A-a Gradient Oxyhemoglobin Total Hemoglobin O2 Delivery Device O2 Liters/Min FiO2 Sodium 136 L Potassium 3.3 L Chloride 110 H Carbon Dioxide 18 L Anion Gap 8 BUN 29 H Creatinine 1.04 H Estim Creat Clear Calc 41 Estimated GFR 53 L Glucose 128 H POC Capillary Glucose 191 H 121 H Hemoglobin A1c Calcium 8.8 Magnesium 1.5 L Total Bilirubin 0.6 AST 36 ALT 38 H Alkaline Phosphatase 58 Troponin I Total Protein 7.0 Albumin 4.0 Lipase Beta-Hydroxybutyrate/Acetoacetate Urine Color Urine Appearance Urine pH Ur Specific [place] Urine Protein Urine Glucose (UA) Urine Ketones Ur Blood (Man) Urine Nitrate Urine Bilirubin Urine Urobilinogen Add Ur Microanalysis Leukocyte Esterase Rfl Urine RBC Urine WBC Ur Squamous Epith Cells Urine Bacteria Urine Casts Hyaline Casts 08/09/24 11:19 WBC RBC Hgb Hct MCV MCH MCHC RDW Plt Count MPV Immature Gran % (Auto) Neut % (Auto) Lymph % (Auto) [place] % (Auto) Eos % (Auto) Baso % (Auto) Lymph # (Auto) [place] # (Auto) Eos # (Auto) Baso # (Auto) Abs Immat Gran (auto) Absolute Neuts (auto) Absolute Nucleated RBC Nucleated RBC % % Immature Plt Fraction Puncture Site ABG pH ABG pCO2 ABG pO2 ABG PO2/FiO2 Ratio ABG HCO3 ABG O2 Saturation ABG O2 Content ABG Base Excess A-a Gradient Oxyhemoglobin Total Hemoglobin O2 Delivery Device O2 Liters/Min FiO2 Sodium Potassium Chloride Carbon Dioxide Anion Gap BUN Creatinine Estim Creat Clear Calc Estimated GFR Glucose POC Capillary Glucose 109 H Hemoglobin A1c Calcium Magnesium Total Bilirubin AST ALT Alkaline Phosphatase Troponin I Total Protein Albumin Lipase Beta-Hydroxybutyrate/Acetoacetate Urine Color Urine Appearance Urine pH Ur Specific [place] Urine Protein Urine Glucose (UA) Urine Ketones Ur Blood (Man) Urine Nitrate Urine Bilirubin Urine Urobilinogen Add Ur Microanalysis Leukocyte Esterase Rfl Urine RBC Urine WBC Ur Squamous Epith Cells Urine Bacteria Urine Casts Hyaline Casts Quality VTE Prophylaxis VTE prophylaxis: pharmacologic ordered
[2024-08-09 14:48] LABS: Toxigenic C. Diff NEGATIVE (NEGATIVE)
[2024-08-09 16:43] LABS: Glucose Point of Care 101 mg/dl (65-105)
[2024-08-09] MEDS: HYDROcodone/acetaminophen (*CRX) 5-325 MG TABLET 1 TAB PO (20:04)
[2024-08-09] MEDS: ROSUVASTATIN 20 MG TABLET PO (20:04)
[2024-08-09 21:00] LABS: Glucose Point of Care 121 mg/dl (65-105)
[2024-08-10] VITALS: PULSE 63
[2024-08-10 04:00] VITALS: PULSE 61
[2024-08-10] MEDS: SODIUM CHLORIDE 0.9% IV 1,000 ML 125 ML IV CONT (04:10)
[2024-08-10 06:00] VITALS: BP 101/39; PULSE 60; RESP 18; TEMP 36.6; O2SAT 100
[2024-08-10 07:58] LABS: Glucose Point of Care 80 mg/dl (65-105)
[2024-08-10 08:00] VITALS: PULSE 60
[2024-08-10] MEDS: FERROUS SULFATE 325 MG TABLET DR BY MOUTH (08:35)
[2024-08-10] MEDS: ASCORBIC ACID 500 MG TABLET PO (08:35)
[2024-08-10] MEDS: POTASSIUM CHLORIDE 20 MEQ ER TABLET PO (08:35)
[2024-08-10] MEDS: MAGNESIUM OXIDE 400 MG TABLET PO (08:35)
[2024-08-10] MEDS: ASPIRIN 81 MG ENTERIC TABLET PO (08:35)
[2024-08-10] MEDS: FLUCONAZOLE 150 MG TABLET PO (08:36)
[2024-08-10] MEDS: ENOXAPARIN 40 MG/0.4 ML SYRINGE SUB-Q (08:36)
[2024-08-10 10:54] LABS: Hemoglobin 9.8 g/dL (12.0-15.0); Mean Corpuscular HGB Conc 32.7 g/dl (32-36); Mean Corpuscular Hemoglobin 33.6 pg (26-34); Mean Corpuscular Volume 102.7 fl (80-100); Mean Platelet Volume 9.9 fl (7.4-10.4); Platelet Count Result 104 k/mm3 (150-375); Red Blood Count 2.92 M/mm3 (4.2-5.4); Red Cell Distribution Width 12.2 % (11.5-14.5); White Blood Count 4.3 K/mm3 (4.5-10.0)
[2024-08-10 11:23] LABS: Anion Gap 5 mmol/L (4-12); Blood Urea Nitrogen 18 mg/dL (7-17); Calcium 8.3 mg/dL (8.4-10.2); Carbon Dioxide 21 mmol/L (22-30); Chloride 112 mmol/L (98-107); Estimated CRCL calculation 59 ml/min; Estimated Glomerular Filt Rate > 60; Glucose 109 mg/dL (65-110); Potassium 3.1 mmol/L (3.4-5.0); Sodium 138 mmol/L (137-145)
[2024-08-10 12:09] LABS: Glucose Point of Care 69 mg/dl (65-105)
[2024-08-10 12:54] LABS: Glucose Point of Care 136 mg/dl (65-105)
--- NOTE | 2024-08-10 13:30 | P.DS_ITS ---
DS: Admitting Diagnosis Discharge Date 08/10 Admitting Diagnosis diarrhea DS: Discharge Diagnosis Discharge Diagnosis (1) Acute hypokalemia: Code(s): E87.6 - Hypokalemia Status: Acute (2) Nausea vomiting and diarrhea: Code(s): R11.2 - Nausea with vomiting, unspecified; R19.7 - Diarrhea, unspecified Status: Acute (3) Chronic back pain: Code(s): M54.9 - Dorsalgia, unspecified; G89.29 - Other chronic pain Status: Chronic (4) Hypertension: Code(s): I10 - Essential (primary) hypertension Status: Chronic (5) Hyperlipidemia: Code(s): E78.5 - Hyperlipidemia, unspecified Status: Chronic Assessment and Plan: * Continue statin therapy with Crestor 20 mg HS * Heart healthy diet (6) Diabetes mellitus: Code(s): E11.9 - Type 2 diabetes mellitus without complications Status: Chronic Assessment and Plan: * Continue Trulicity * Accu-Cheks a.c. and HS * Hypoglycemic protocol * Check A1c Plan Anticipate discharge in the next day or two if stable/continues to improve DS: Summary Hospital Course Hospital Course: # hypokalemia As evidenced by potassium of 2.6 secondary to nausea vomiting diarrhea. * You are administered p.o. potassium at 40 mEq. K rider 40 mEq ordered * Monitor and trend labs and vital signs * Telemetry * continue daily replacement * mg 1.5- added supplements # Gastroenteritis versus other acute infectious cause. * CT abdomen pelvis with contrast ordered to rule out diverticulitis. * Deferring any start of antibiotics as higher suspicion of viral cause as patient has been exposed to family with similar symptoms. * e coli, shiga neg., camp antigen neg. salmonella -pending * Continue IV fluid hydration with normal saline at 125 mL/hour. * Monitor trend labs and vital signs * Antiemetics * Pain meds # Chronic back pain * Continue baclofen 10 mg daily * Tylenol ordered for mild pain * Tramadol ordered for moderate pain * [place] ordered for severe pain # htn will hold hydrochlorothiazide 25 mg for now as BP had been soft and hypokalemic continue with supplemental potassium 20 mEq daily discussed with her when to hold bp med (if bp 100 or below) * Monitor and log bp daily -close f/u with pcp Time Spent with Patient Time attestation: Total time spent providing and/or coordinating discharge services: Exam Const: General: comfortable and no acute distress Other: Lying on stretcher in no acute distress. HENMT: Face/Nose/Sinus: Normal nares present and no epistaxis Mouth: Yes dry mucous membranes Eyes: General: appearance normal, both eyes and all related structures Sclera: sclerae normal Pupils: Equal, round and reactive pupils present Neck: Neck: supple and no JVD Chest: Other: Nontender to palpation Resp: Effort & Inspection: normal respiratory effort Auscultation: clear to auscultation bilaterally Cardio: Rate: regular rate, not bradycardic and not tachycardic Rhythm: regular rhythm Heart sounds: no gallops, no murmurs and no rubs GI: Inspection: non-distended Auscultation: normal bowel sounds Skin: General skin exam: normal color, rashes and/or lesions noted, no erythema, No lesion and No rashes Lesions: no lesions noted Rashes: no rashes noted Wounds: no wounds Neuro: General: gait normal Cranial nerves: Yes Equal, round and reactive pupils present Speech: normal speech Motor exam (neuro): 5/5 motor strength present throughout and Normal motor muscle tone present throughout Sensory Exam: normal sensation Extrem: Other: Patient feeling equally moves all extremities well. Psych: Mental Status: mental status grossly normal Affect: normal affect DS: Data Data Completed and Pending Labs on day of discharge: Labs from last 24 hours 08/10/24 08/10/24 08/10/24 12:51 12:00 10:33 WBC 4.3 L RBC 2.92 L Hgb 9.8 L Hct 30.0 L MCV 102.7 H MCH 33.6 MCHC 32.7 RDW 12.2 Plt Count 104 L MPV 9.9 Sodium 138 Potassium 3.1 L Chloride 112 H Carbon Dioxide 21 L Anion Gap 5 BUN 18 H D Creatinine 0.70 Estim Creat Clear Calc 59 Estimated GFR > 60 Glucose 109 POC Capillary Glucose 136 H 69 Calcium 8.3 L C. difficile (PCR) 08/10/24 08/09/24 08/09/24 07:45 20:11 16:38 WBC RBC Hgb Hct MCV MCH MCHC RDW Plt Count MPV Sodium Potassium Chloride Carbon Dioxide Anion Gap BUN Creatinine Estim Creat Clear Calc Estimated GFR Glucose POC Capillary Glucose 80 121 H 101 Calcium C. difficile (PCR) 08/09/24 13:05 WBC RBC Hgb Hct MCV MCH MCHC RDW Plt Count MPV Sodium Potassium Chloride Carbon Dioxide Anion Gap BUN Creatinine Estim Creat Clear Calc Estimated GFR Glucose POC Capillary Glucose Calcium C. difficile (PCR) Negative Discharge Plan Discharge Attending physician on discharge: Irineo Calle Discharging Clinician: Kelin Enciso Patient Disposition: Home Activity: may shower Diet: regular Discharge Instructions: you were admitted for diarrhea and electrolytes imbalance (low potassium, magnesium) # hypokalemia * continue daily replacement please have labs repeated within 1 week # Gastroenteritis versus other acute infectious cause. * CT abdomen pelvis with contrast - normal * c diff negative * e coli, shiga neg., camp antigen neg. salmonella -pending # hypertension will hold hydrochlorothiazide 25 mg for now as BP had been soft and hypokalemic continue with supplemental potassium 20 mEq daily Please check BP every morning and keep log. Hold bp medication (if systolic number- first number- 100 or below). Please see your pcp within 1 week, bring BP log for review and further instructions. Patient Instructions: Antibiotic Form Patient Language: Vietnamese Stand Alone Forms: General Discharge Information Follow-up/Referrals: Laurent,Raquel Mccarty APRN [Primary Care Provider] - 1 Week Discharge Medications: New magnesium oxide 400 mg (241.3 mg magnesium) Tablet 400 mg PO DAILY Qty: 10 0RF Continued ascorbic acid (vitamin C) [Vitamin C] 500 mg tablet 500 mg PO BID baclofen 10 mg tablet 10 mg PO DAILY PRN (Reason: muscle spasms) ferrous sulfate [FeroSul] 325 mg (65 mg iron) tablet 325 mg PO BID fosinopril 40 mg tablet 40 mg PO DAILY Adult Low Dose Aspirin 81 mg Tablet 81 mg PO DAILY Trulicity 3 mg/0.5 mL pen injector 3 mg SUBCUT WEEKLY Rx Instructions: wednesday fluconazole 150 mg tablet 150 mg PO WEEKLY Rx Instructions: potassium chloride 20 mEq tablet,ER particles/crystals 20 meq PO DAILY rosuvastatin 20 mg tablet 20 mg PO HS Held hydrochlorothiazide 25 mg tablet 25 mg PO DAILY Hold Instructions: Resume on 08/24/24. hold until instructed otherwise per pcp Other Ambulatory Orders: Comprehensive Metabolic Panel (Routine) Timeframe: 1 Week Location: Determined by Patient Ordered By: Kelin Enciso Date of admission: 08/09/24 15:09 Primary Care Provider: Laurent,Raquel Mccarty Admitting Provider: Osmel Gale Attending physician on admission: Osmel Gale Condition: Stable Quality VTE Prophylaxis VTE prophylaxis: pharmacologic ordered
[2024-08-10 14:00] VITALS: BP 109/48; PULSE 60; RESP 18; TEMP 36.7; O2SAT 100
== END 2024-08-10 14:46 | disposition home or self-care (01) | DRG 641 ==
LOC: ANHED 17:49 → ANH2MED 18:42
PROVIDERS: Nurse Practitioner Adult Health; Admitting Provider Internal Medicine; Emergency Provider Emergency Medicine; PCP Nurse Practitioner Family; Visit Provider Nurse Practitioner
DX: E87.6 Hypokalemia (principal); K52.9 Noninfective gastroenteritis and colitis, unspecified; M54.9 Dorsalgia, unspecified; G89.29 Other chronic pain; I10 Essential (primary) hypertension; E78.5 Hyperlipidemia, unspecified; E11.9 Type 2 diabetes mellitus without complications; F17.210 Nicotine dependence, cigarettes, uncomplicated
CPT/HCPCS: 36415; 36600; 71046; 74177; 80048; 80053; 81001; 82010; 82805; 82948; 83036; 83690; 83735; 84484; 85018; 85025; 85027; 85055; 87045; 87427; 87449; 87493; 93005; 96361; 96365; 96366; 96372; 96375; 96376; 99285; A9270; G0378; J1650; J2405; J3480; J7030; J7040; Q9967